=== PATIENT | female | born 1955 | race Caucasian/White ===

== ENCOUNTER 2017-02-14 19:03 | Emergency (ER) | payer OTHER ==
[2017-02-14 20:04] VITALS: BP 155/65
--- NOTE | 2017-02-14 20:07 | UC ---
Complaint Female HPI - HPI Summary HPI Summary: Pt c/o of sudden onset of stabbing pain in her "urethra". Pt was at PCP today and had [id number] physical denies and adverse findings at todays exam. Is concerned that she has a UTI - History Of Current Complaint Chief Complaint: UCGU Stated Complaint: URINARY Time Seen by Provider: 02/14/17 20:02 Hx Obtained From: Patient Hx Last Menstrual Period: 2003 ?: No Onset/Duration: Sudden Onset, Lasting Hours Timing: Intermittent, Lasting Seconds Severity Initially: Mild Severity Currently: Mild Character: Sharp Aggravating Factor(s): Urination Associated Signs And Symptoms: Positive: Back Pain - has chronic back pain - Allergies/Home Medications Allergies/Adverse Reactions: Allergies Allergy/AdvReac Type Severity Reaction Status Date / Time Sulfamethoxazole Allergy Rash Verified 02/14/17 19:54 w/Trimethoprim [From Bactrim] Home Medications: Home Medications buPROPion TAB* [Wellbutrin TAB*] 75 mg PO DAILY 02/14/17 [History Confirmed ] PMH/Surg Hx/FS Hx/Imm Hx Previously Healthy: Yes Cardiovascular History Of: Reports: Cardiac Disorders - Paroxysmal afib, on Rhythmol, Hypertension, Atrial Fibrillation Neurological History Of: Denies: Seizures Psychological History Of: Reports: Anxiety, Depression - Surgical History Surgical History: Yes Surgery Procedure, Year, and Place: Total left knee 11/2014. abdominal hernia repair 2005, 2015. BOWEL OBSTRUCTION RESECT 2012. Cataract surgery. DOUBLE HERNIA REPAIR- MAY 2016 - Family History Known Family History: Positive: Hypertension - Social History Alcohol Use: None Substance Use Type: None Smoking Status (MU): Never Smoked Tobacco Have You Smoked in the Last Year: No - Immunization History Most Recent Influenza Vaccination: NO Most Recent Tetanus Shot: 2012 Most Recent Pneumonia Vaccination: NONE Review of Systems Constitutional: Negative Skin: Negative Eyes: Negative ENT: Negative Respiratory: Negative Cardiovascular: Negative Gastrointestinal: Abdominal Pain - suprapubic Genitourinary: Other - stabbing pain in "urethra" Motor: Negative Neurovascular: Negative Musculoskeletal: Negative Neurological: Negative Psychological: Negative All Other Systems Reviewed And Are Negative: Yes Physical Exam Triage Information Reviewed: Yes Appearance: Well-Appearing Vital Signs: Initial Vital Signs Temp 98.2 F 02/14/17 19:57 Pulse 72 02/14/17 19:57 Resp 18 02/14/17 19:57 BP 155/65 02/14/17 19:57 Pulse Ox 96 02/14/17 19:57 Vital Signs Reviewed: No Eye Exam: Normal Neck exam: Normal Respiratory Exam: Normal Cardiovascular Exam: Normal Abdominal Exam: Other Abdomen Description: Positive: CVA Tenderness (R) - chronic, CVA Tenderness (L) - chronic Musculoskeletal Exam: Other Musculoskeletal: Positive: ROM Limited @ - low back pain , chronic Neurological Exam: Normal Psychological Exam: Normal Skin Exam: Normal Complaint Female Dx - Course Course Of Treatment: I discussed with the pt the results of the UA and concern for possible kidney stone. Pt verbalized understanding and agreed toplan of care. - Differential Dx/Diagnosis Differential Diagnosis/HQI/PQRI: Ureteral Stone, Urinary Tract Infection Provider Diagnoses: hematuria. kidney stone? Discharge - Discharge Plan Condition: Stable Disposition: HOME Patient Education Materials: Hematuria (ED) Referrals: KERVIN Jiménez [Primary Care Provider] - 1 Day Additional Instructions: Please follow up with your PCP in 1 day for hematuria and elevated blood pressure revealed at todays visit.
== END 2017-02-14 20:53 | disposition home or self-care (01) ==
LOC: UCCORT 19:03
DX: R31.9 Hematuria, unspecified (principal); N36.8 Other specified disorders of urethra; Z88.2 Allergy status to sulfonamides
CPT/HCPCS: 81003; 99211; G0463

== ENCOUNTER 2017-06-22 12:19 | Emergency (ER) | payer SELFPAY ==
[2017-06-22 12:25] VITALS: BP 146/83
--- NOTE | 2017-06-22 12:56 | UC ---
Lower Extremity/Ankle HPI - HPI Summary HPI Summary: Increasing, slowly worsening R ankle pain for 5-6 weeks. Also having joint pains in other parts of her body that don't feel like her normal OA. Today went to work and ankle was very painful. Once she sat for a few minutes was unable to stand on it again due to pain. Sx worse with any movement or wiggling toes. Pain is mostly lateral, below malleolus. Had fx in R ankle years ago, no sx. - History of Current Complaint Chief Complaint: UCLowerExtremity Stated Complaint: ACHY JOINTS/RIGHT ANKLE PAIN Time Seen by Provider: 06/22/17 12:39 Hx Obtained From: Patient Hx Last Menstrual Period: 2003 Onset/Duration: Gradual Onset, Lasting Weeks Severity Initially: Mild Severity Currently: Moderate Aggravating Factor(s): Standing, Ambulation Alleviating Factor(s): Rest Able to Bear Weight: Yes - Allergies/Home Medications Allergies/Adverse Reactions: Allergies Allergy/AdvReac Type Severity Reaction Status Date / Time Sulfamethoxazole Allergy Rash Verified 06/22/17 12:26 w/Trimethoprim [From Bactrim] Home Medications: Home Medications hydrOXYzine HCL TAB* [Atarax 10 MG TAB*] 10 mg PO BEDTIME PRN 06/22/17 [History Confirmed 06/22/17] proPAFENone TAB* [Rythmol*] 150 mg PO BID 06/22/17 [History Confirmed 06/22/17] PMH/Surg Hx/FS Hx/Imm Hx Cardiovascular History: Hypertension, Atrial Fibrillation - Surgical History Surgical History: Yes Surgery Procedure, Year, and Place: Total left knee 11/2014. abdominal hernia repair 2005, 2015. BOWEL OBSTRUCTION RESECT 2012. Cataract surgery. DOUBLE HERNIA REPAIR- MAY 2016 - Family History Known Family History: Positive: Hypertension - Social History Occupation: Employed Full-time Alcohol Use: None Substance Use Type: None Smoking Status (MU): Never Smoked Tobacco Have You Smoked in the Last Year: No - Immunization History Most Recent Influenza Vaccination: NO Most Recent Tetanus Shot: 2012 Most Recent Pneumonia Vaccination: NONE Review of Systems Constitutional: Negative Skin: Negative Eyes: Negative ENT: Negative Respiratory: Negative Cardiovascular: Negative Gastrointestinal: Negative Genitourinary: Negative Motor: Decreased ROM Neurovascular: Negative Musculoskeletal: Arthralgia Neurological: Negative Psychological: Negative All Other Systems Reviewed And Are Negative: Yes Physical Exam Triage Information Reviewed: Yes Appearance: Well-Appearing, Obese Vital Signs: Initial Vital Signs Temp 98.1 F 06/22/17 12:22 Pulse 75 06/22/17 12:22 Resp 18 06/22/17 12:22 BP 146/83 06/22/17 12:22 Pulse Ox 100 06/22/17 12:22 Vital Signs Reviewed: Yes Eye Exam: Normal, Other - PERRL Eyes: Positive: Conjunctiva Clear ENT Exam: Normal ENT: Positive: Normal ENT inspection, Hearing grossly normal, Pharynx normal, TMs normal Dental Exam: Normal Neck exam: Normal Neck: Positive: Supple, Nontender, No Lymphadenopathy Respiratory Exam: Normal Respiratory: Positive: Chest non-tender, Lungs clear, Normal breath sounds, No respiratory distress, No accessory muscle use Cardiovascular Exam: Normal Cardiovascular: Positive: RRR, No Murmur Musculoskeletal Exam: Other - tender R lateral ankle inferior to malleolus Musculoskeletal: Positive: No Edema, ROM Limited @ - R ankle, ltd by pain Neurological Exam: Normal Psychological Exam: Normal Skin Exam: Normal Lower Extremity Course/Dx - Differential Dx/Diagnosis Provider Diagnoses: R ankle arthritis Discharge - Discharge Plan Condition: Stable Disposition: HOME Patient Education Materials: Arthritis (ED) Referrals: Paradise Spangler PA [Primary Care Provider] - 1 Week Yasir Barksdale MD [Medical Doctor] - 1 Week Additional Instructions: Bloodwork pending. Please follow up with the orthopedist and your primary care provider for further investigation.
--- NOTE | 2017-06-22 13:17 | RAD ---
INDICATION: Increasing right ankle pain. TECHNIQUE: 3 views of the right ankle were obtained. FINDINGS: There is diffuse soft tissue swelling present. The bones are in normal alignment. No fracture is seen. There is mild to moderate osteoarthritic change in the tibiotalar joint. Note is made of moderate to large calcaneal spurs. IMPRESSION: 1. DIFFUSE SOFT TISSUE SWELLING. 2. MILD TO MODERATE OSTEOARTHRITIC CHANGE.
[2017-06-23 14:25] LABS: BUN/Creatinine Ratio 25.3 (8-20); Calcium 9.8 mg/dL (8.6-10.3); EGFR African American 85.7 (>60); EGFR Non-African American 66.6 (>60); Globulin 2.9 g/dL (2-4); Potassium 4.2 mmol/L (3.5-5.0); Total Bilirubin 0.4 mg/dL (0.2-1.0); Total Protein 6.9 g/dL (6.4-8.9); Uric Acid 6.2 mg/dL (2.3-6.6)
--- NOTE | 2017-06-24 07:04 | ED ---
Progress - Progress Note Progress Note: CMP (-), uric acid pending, follow up with PCP/ER if worse. Course/Dx - Diagnoses Provider Diagnoses: Ankle swelling
--- NOTE | 2017-06-24 10:38 | ED ---
Progress - Progress Note Progress Note: CMP (-), uric acid pending, follow up with PCP/ER if worse. CMP/URIC ACID (-), follow up with PCP/ER if worse. Course/Dx - Diagnoses Provider Diagnoses: Ankle swelling
== END 2017-06-22 13:54 | disposition home or self-care (01) ==
LOC: UCCORT 12:19
DX: M19.071 Primary osteoarthritis, right ankle and foot (principal); I10 Essential (primary) hypertension; I48.91 Unspecified atrial fibrillation; E66.9 Obesity, unspecified; Z96.652 Presence of left artificial knee joint; Z98.49 Cataract extraction status, unspecified eye; Z88.2 Allergy status to sulfonamides
CPT/HCPCS: 36415; 80053; 84550; 86618; 99213; G0463

== ENCOUNTER 2018-02-06 07:10 | Emergency (ER) | payer OTHER ==
[2018-02-06 07:37] VITALS: BP 141/54
--- NOTE | 2018-02-06 07:41 | ED ---
Throat Pain/Nasal Congestion - HPI Summary HPI Summary: 62 yr old female with the complaint of runny nose, post nasal drip and persistent sinus pressure and coughing. She has been ill for about three weeks. She was put on a z pack and also on steroids by pmd, and got a little better, but has persistent sinus pressure and coughing. - History of Current Complaint Chief Complaint: UCGeneralIllness Time Seen by Provider: 02/06/18 07:25 - Allergies/Home Medications Allergies/Adverse Reactions: Allergies Allergy/AdvReac Type Severity Reaction Status Date / Time MS Sulfamethoxazole Allergy Rash Verified 02/06/18 07:37 w/Trimethoprim [From Bactrim] sulfamethoxazole Allergy Rash Verified 02/06/18 07:37 [From Bactrim] trimethoprim [From Bactrim] Allergy Rash Verified 02/06/18 07:37 PMH/Surg Hx/FS Hx/Imm Hx Cardiovascular History: Reports: Hx Hypertension GI History: Reports: Hx Gastroesophageal Reflux Disease - ON MEDS, Hx Obstructive Bowel Musculoskeletal History: Reports: Hx Arthritis - BILATERAL KNEES, HANDS, WRIST, Sensory History: Reports: Hx Cataracts - RIGHT, Hx Contacts or Glasses Denies: Hx Hearing Aid Opthamlomology History: Reports: Hx Cataracts - RIGHT, Hx Contacts or Glasses Neurological History: Denies: Hx Headaches, Hx Seizures Psychiatric History: Reports: Hx Anxiety, Hx Depression - Surgical History Surgery Procedure, Year, and Place: Total left knee 11/2014. abdominal hernia repair 2005, 2015. BOWEL OBSTRUCTION RESECT 2012. Cataract surgery. DOUBLE HERNIA REPAIR- MAY 2016 Hx Anesthesia Reactions: No Infectious Disease History: No Infectious Disease History: Reports: Hx Shingles Denies: Hx Clostridium Difficile, Hx Hepatitis, Hx Human Immunodeficiency Virus (HIV), Hx of Known/Suspected MRSA, Hx Tuberculosis, Hx Known/Suspected VRE , Hx Known/Suspected VRSA, History Other Infectious Disease, Traveled Outside the [place] in Last 30 Days - Family History Known Family History: Positive: Hypertension - Social History Alcohol Use: None Substance Use Type: Reports: None Smoking Status (MU): Never Smoked Tobacco Have You Smoked in the Last Year: No Review of Systems Constitutional: Negative Positive: Other - sinus pressure, post nasal drip Positive: Cough All Other Systems Reviewed And Are Negative: Yes Physical Exam Triage Information Reviewed: Yes Vital Signs On Initial Exam: Initial Vitals Temp Pulse Resp BP Pulse Ox 98.1 F 80 20 141/54 100 02/06/18 07:33 02/06/18 07:33 02/06/18 07:33 02/06/18 07:33 02/06/18 07:33 Vital Signs Reviewed: Yes Appearance: Positive: Well-Appearing, No Pain Distress Skin: Positive: Warm, Skin Color Reflects Adequate Perfusion Eyes: Positive: EOMI ENT: Positive: Pharynx normal, Nasal congestion, Sinus tenderness - bilateral Neck: Positive: Nontender Respiratory/Lung Sounds: Positive: Clear to Auscultation, Breath Sounds Present Cardiovascular: Positive: RRR Abdomen Description: Positive: Nontender Musculoskeletal: Positive: Strength/ROM Intact Neurological: Positive: Sensory/Motor Intact, Alert, Oriented to Person Place, Time, CN Intact II-III Psychiatric: Positive: Normal - Keller Coma Scale Best Eye Response: 4 - Spontaneous Best Motor Response: 6 - Obeys Commands Best Verbal Response: 5 - Oriented Coma Scale Total: 15 Diagnostics - Vital Signs Vital Signs Temp Pulse Resp BP Pulse Ox 02/06/18 07:33 98.1 F 80 20 141/54 100 - Laboratory Lab Statement: Any lab studies that have been ordered have been reviewed, and results considered in the medical decision making process. EENT Course/Dx - Course Course Of Treatment: 62 yr old with sinusitis. Rx augmentin. - Diagnoses Provider Diagnoses: Sinusitis, Hypertension Discharge - Discharge Plan Condition: Good Disposition: HOME Prescriptions: Amoxicillin/Clavulanate TAB* [Augmentin TAB 875*] 875 mg PO BID #20 tab Patient Education Materials: Sinusitis (ED), Hypertension (ED) Referrals: Paradise Pearson MD [Primary Care Provider] - 2 Days
== END 2018-02-06 07:51 | disposition home or self-care (01) ==
LOC: UCCORT 07:10
DX: J32.9 Chronic sinusitis, unspecified (principal); I10 Essential (primary) hypertension; Z88.1 Allergy status to other antibiotic agents
CPT/HCPCS: 99212; G0463

== ENCOUNTER 2018-07-14 15:22 | Emergency (ER) | payer OTHER ==
--- OUTSIDE RECORDS SUMMARY | 2018-07-14 16:03 | XMS REPORT ---
:1955 External Reference #:[id number] Author Organization [employer] Address [address] [place] [address] [place] [address] Phone [phone] Care Team Providers Name Role Phone Domingo Romero, ALVARO Primary Care Physician Unavailable Payers Type Date Identification Numbers Payment Provider Subscriber Commercial Policy Number: [id number] [place] Merle Maldonado PayID: [id number] [address] [place] [address] Medigap Part B Expires: 2014 Policy Number: [id number] Medicaid Merle Maldonado Group Name: 1 1 [address] PayID: [id number] [place] [address] Problems Description No Information Family History Date Family Member(s) Problem(s) Comments General Diabetes General Lung Cancer General Rectal Cancer Father Stomach Cancer Mother Lung Cancer Social History Type Date Description Comments Marital Status Lives With Alone 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 Smokeless Tobacco Never Used Smokeless Tobacco ETOH Use Denies alcohol use Smoking Patient has never smoked Recreational Drug Use Denies Drug Use Daily Caffeine Consumes on average 12oz of soda per day Exercise Type/Frequency Does not exercise Allergies, Adverse Reactions, Alerts Date Description Reaction Status Severity Comments 07/04/2018 Bactrim active 06/21/2014 NKDA inactive Medications Medication Date Status Form Strength Qnty SIG Indications Ordering Provider Cymbalta / Active Caps DR 30cap 1 by mouth Unknown 0000 Part s every day Rythmol SR / Active Caps ER 325mg 180ca 1 cap by Unknown 0000 12HR ps mouth twice a day Ondansetron HCL / Active Tablets 4mg one by mouth Unknown 0000 every 8 hours as needed for nausea Xarelto / Active Tablets 20mg 1 by mouth Unknown 0000 every day Omeprazole / Active Capsules 20mg 1 by mouth Unknown 0000 DR every day Klor-Con M20 / Active Tablets 20Meq Villapian 0000 ER Paradise beasley M.D. Furosemide / Active Tablets 40mg Unknown 0000 Hydroxyzine HCL / Active Tablets 10mg Unknown 0000 Percocet 01/24/ Hx Tablets 5-325mg 40tab 1-2 tabs by Carolyn 2014 mouth q 8 Yasir, hours as M.D. needed for pain Coumadin 11/08/ Hx Tablets 2.5mg 60tab take as Carolyn 2013 directed at [facility], 12/23/ 5pm daily M.DRose 2014 Colace 11/08/ Hx Capsules 100mg 60cap one capsule Rafael 2013 s two times a Kanika, day as needed M.D. constipation Bactrim DS 11/08/ Hx Tablets 800-160mg 14tab 1 by mouth Carolyn 2013 twice a day Yasir, 12/23/ for 7 days M.D. 2014 Percocet 09/01/ Hx Tablets 5-325mg 80tab 1-2 tabs by Carolyn 2013 mouth q 6 Yasir, 12/23/ hours as M.DRose 2014 needed for pain Wellbutrin SR / Hx Tablets 60mg 60tab 1 by mouth Unknown 0000 ER 12HR s twice a day Ciprofloxacin / Hx Tablets 500mg 1 tab by Unknown HCL 0000 mouth twice a day Metronidazole / Hx Tablets 500mg one tablet by Unknown 0000 mouth 3 times daily Sucralfate / Hx Tablets 1gm 1 by mouth Unknown 0000 four times a day Potassium / Hx Tablets 20Meq 1 by mouth Unknown Chloride Sunshine 0000 ER every day x ER 14 days Lisinopril / Hx Tablets 20mg 1 by mouth Unknown 0000 every day Medications Administered in Office Medication Date Status Form Strength Qnty SIG Indications Ordering Provider Depomedrol Administered Injection Carolyn 80MG 015 Clem Cooley Depomedrol Administered Injection Carolyn 80MG 014 Clem Cooley Depomedrol Administered Injection Vilma 80MG 014 Clem Reynolds Depomedrol Administered Injection Vilma 80MG 014 Clem Reynolds Vital Signs Date Vital Result Comment 07/04/2018 Height 64 inches 5'4" Weight 284.00 lb Heart Rate 76 /min BP Systolic 122 mmHg BP Diastolic 84 mmHg Respiratory Rate 18 /min Body Temperature 98.4 F BMI (Body Mass Index) 48.7 kg/m2 03/02/2015 Height 64 inches 5'4" Weight 283.00 lb Pain Level 2 BMI (Body Mass Index) 48.6 kg/m2 01/19/2015 Height 64 inches 5'4" Weight 283.00 lb Pain Level 8 BMI (Body Mass Index) 48.6 kg/m2 12/24/2014 Height 64 inches 5'4" Heart Rate 87 /min BP Systolic 140 mmHg BP Diastolic 80 mmHg 12/03/2014 Height 64 inches 5'4" Weight 283.00 lb Heart Rate 87 /min BP Systolic Sitting 138 mmHg BP Diastolic Sitting 70 mmHg Body Temperature 98.5 F BMI (Body Mass Index) 48.6 kg/m2 11/08/2014 Height 64 inches 5'4" Weight 300.00 lb Heart Rate 73 /min BP Systolic 156 mmHg BP Diastolic 79 mmHg BMI (Body Mass Index) 51.5 kg/m2 09/01/2014 Height 64 inches 5'4" Weight 295.00 lb Heart Rate 88 /min BMI (Body Mass Index) 50.6 kg/m2 08/11/2014 Heart Rate 88 /min BP Systolic Sitting 140 mmHg BP Diastolic Sitting 90 mmHg 06/21/2014 Height 64 inches 5'4" Weight 295.00 lb Heart Rate 80 /min BP Systolic Sitting 140 mmHg BP Diastolic Sitting 82 mmHg BMI (Body Mass Index) 50.6 kg/m2 Results Test Date Test Result H/L Range Note CBC Auto Diff 11/11/2014 White Blood Count 8.5 10^3/uL 4.8-10.8 Red Blood Count 5.28 10^6/uL 4.0-5.4 Hemoglobin 12.7 g/dL 12.0-16.0 Hematocrit 39 % 35-47 Mean Corpuscular Volume 74 fL Low 80-97 Mean Corpuscular Hemoglobin 24 pg Low 27-31 Mean Corpuscular HGB Conc 33 g/dL 31-36 Red Cell Distribution Width 16 % High 10.5-15 Platelet Count 332 10^3/uL 150-450 Mean Platelet Volume 8 um3 7.4-10.4 Abs Neutrophils 5.3 10^3/uL 1.5-7.7 Abs Lymphocytes 2.4 10^3/uL 1.0-4.8 Abs Monocytes 0.6 10^3/uL 0-0.8 Abs Eosinophils 0.1 10^3/uL 0-0.6 Abs Basophils 0.1 10^3/uL 0-0.2 Abs Nucleated RBC 0.01 10^3/uL Granulocyte % 62.2 % 38-83 Lymphocyte % 28.3 % 25-47 Monocyte % 7.5 % 1-9 Eosinophil % 1.4 % 0-6 Basophil % 0.6 % 0-2 Nucleated Red Blood Cells % 0.2 Comp Metabolic Panel 11/11/2014 Sodium 139 mmol/L 133-145 Potassium 4.2 mmol/L 3.5-5.0 Chloride 103 mmol/L 101-111 Co2 Carbon Dioxide 29 mmol/L 22-32 Anion Gap 7 mmol/L 2-11 Glucose 90 mg/dL 70-100 Blood Urea Nitrogen 12 mg/dL 6-24 Creatinine 0.74 mg/dL 0.51-0.95 BUN/Creatinine Ratio 16.2 8-20 Calcium 9.6 mg/dL 8.6-10.3 Total Protein 7.2 g/dL 6.4-8.9 Albumin 4.0 g/dL 3.2-5.2 Globulin 3.2 g/dL 2-4 Albumin/Globulin Ratio 1.3 1-3 Total Bilirubin 0.30 mg/dL 0.2-1.0 Alkaline Phosphatase 100 U/L 34-104 Alt 14 U/L 7-52 Ast 13 U/L 13-39 Egfr Non- 80.9 >60 Egfr 104.0 >60 1 Laboratory test finding 11/11/2014 Pathologist Review (SEE NOTE) 2 Type & Screen 11/08/2014 Patient Blood Type A Positive 3 Antibody Screen NEGATIVE 3 Laboratory test finding 11/08/2014 Inr 0.91 0.85-1.06 Urinalysis Profile 11/08/2014 Urine Color Yellow Urine Appearance Cloudy Urine Specific [place] 1.024 1.010-1.030 Urine pH 6.0 5-9 Urine Urobilinogen Positive Negative Urine Ketones Negative Negative Urine Protein Negative Negative Urine Leukocytes 3+ Negative Urine Blood Negative Negative Urine Nitrite Negative Negative Urine Bilirubin Negative Negative Urine Glucose Negative Negative Urine White Blood Cell 2+(11-20/hpf) Absent Urine Red Blood Cell 1+(3-5/hpf) Absent Urine Bacteria Absent Absent Urine Squamous Epithelial Cell Present Absent Urine Culture And Sensitivities 11/08/2014 Urine Culture (SEE NOTE) 4 1 Because ethnic data is not always readily available, this report includes an eGFR for both -Americans and non- Americans. The National Kidney Disease Education Program (NKDEP) does not endorse the use of the MDRD equation for patients that are not between the ages of 18 and 70, are , have extremes of body size, muscle mass, or nutritional status, or are non- or non-. According to the National Kidney Foundation, irrespective of diagnosis, the stage of the disease is based on the level of kidney function: Stage Description GFR(mL/min/1.73 m(2)) 1 Kidney damage with normal or decreased GFR 90 2 Kidney damage with mild decrease in GFR 60-89 3 Moderate decrease in GFR 30-59 4 Severe decrease in GFR 15-29 5 Kidney failure <15 (or dialysis) 2 Reviewed by Brittani Browne MD CBC and smear reviewed. Microcytic, hypochromic anemia present. Findings consistent with iron deficiency. 3 OSTEOARTHRITIS LEFT KNEE 4 RUN DATE: 11/10/14 [facility] LIVE PAGE 1 RUN TIME: [id number] [place], [place] [address] Specimen Inquiry Name: MERLE MALDONADO Domingo : [address]: Carolyn Cooley MD Acct: [id number] Unit: [id number] AGE: 59 Location: [facility] Re11/08/14 SEX: F Status: REG REF SPEC: [id number] ASHWINI: 11/08/14-1124 [facility] DR: Carolyn Cooley MD REQ: [id number] RECD: 11/08/14 STATUS: COMP _ SOURCE: URINE SPDESC: ORDERED: Urine Culture Procedure Result Verified Site Urine Culture Final 11/10/14- 1106 ML Organism 1 NORMAL DANE Lyons Count 25-50,000 (Moderate) CFU/ML END OF REPORT * ML=Testing performed at Main Lab DEPARTMENT OF PATHOLOGY, [address] [place] [address] Toni Lazaro M.D. Director [facility] # [id number] Procedures Date CPT Code Description Status 03/02/201558397 Inject/Drain Joint/Bursa Major W/O US Completed 12/24/2014 21098 Xray Knee 3 Views Completed 12/24/2014 63711 Rad Exam; Knee, Ap&L Completed 12/03/2014 23229 Xray Knee 3 Views Completed 11/16/2014 88907 EKG, Interpretation Only Completed 11/16/2014 09082 TKR Total Knee Replacement Completed 11/16/2014 61466 TKR Total Knee Replacement Completed 09/01/2014 00203 Xray Knee 3 Views Completed 09/01/2014 98880 Xray Knee 3 Views Completed 09/01/201462648 Inject/Drain Joint/Bursa Major W/O US Completed 06/21/201499310 Inject/Drain Joint/Bursa Major W/O US Completed 06/21/201481722 Inject/Drain Joint/Bursa Major W/O US Completed Encounters Type Date Location Provider CPT E/M Dx Office Visit 03/02/2015 [facility] M.D. 16134 715.16 1:30p C.MJuan Office Visit 01/24/2015 [facility] M.D. 07106 719.46 9:30a C.MJuan E885.9 Office Visit 11/17/2014 12:55p [facility], Jayant Castillo, 87351 401.9 Hospitalists Clem 278.00 V43.65 Office Visit 11/16/2014 12:55p [facility], [place] [address] 401.9 Hospitalists 278.00 V43.65 Office Visit 09/01/2014 2:00p [facility] Cooley M.D. 34915 715.16 Of C.MRoseARose Office Visit 08/11/2014 10:15a [facility] Vilma Reynolds 46218 715.16 Of Supervisor Of Instruction CLAUDIA Eugene Clem Office Visit 06/21/2014 9:30a [facility] Vilma Reynolds 76001 715.16 Of [facility] No Information Available
--- OUTSIDE RECORDS SUMMARY | 2018-07-14 16:03 | XMS REPORT ---
:1955 External Reference #:[id number] Author Organization [facility] Address [address], [address] [place] [address] Phone [phone] Care Team Providers Name Role Phone Domingo Romero, ELECTRICAL TRYOUT PERSON Care Team Information Paper Feeder Unavailable Paradise Pearson MD Primary Care Physician Unavailable Payers Type Date Identification Numbers Payment Provider Subscriber Commercial Policy Number: [id number] [employer] Merle Maldonado PayID: [id number] [address] [place] [address] Problems Date Description Provider Status Onset: 04/16/2013 Morbid obesity Daly Robbins M.D. Onset: 04/16/2013 Constipation Daly Robbins M.D. Onset: 04/16/2013 Incisional hernia Daly Robbins M.D. Onset: 07/01/2018 Dizziness and giddiness Yusuf Monae M.D., Active FACC Onset: 07/01/2018 Malaise and fatigue Yusuf Monae M.D., Active FACC Onset: 05/16/2018 Electrocardiogram abnormal Yusuf Monae M.D., Active FACC Onset: 05/16/2018 Aortic valve disorder Yusuf Monae M.D., Active FACC Onset: 05/16/2018 Essential hypertension Yusuf Monae M.D., Active FACC Onset: 05/16/2018 Paroxysmal atrial fibrillation Yusuf Monae M.D., Active FACC Onset: 05/16/2018 Preoperative cardiovascular Yusuf Monae M.D., Active examination FACC Family History Date Family Member(s) Problem(s) Comments General No known family history of CAD. : (age 45 Years) Father due to Liver Cancer Father Stomach Cancer : (age 70 Years) Mother due to Lung Cancer Mother Lung Cancer First Son 28 First Daughter 21 First Brother heart valve replacement Second Brother Diabetes Grandfather Heart Disease Grandfather Stroke Social History Type Date Description Comments Marital Status Single Lives With Carline Lives With Daughter Lives With Son Diet Patient follows no dietary restrictions Occupation Unemployed ADL's/IADL's Independent with all ADL's ETOH Use Denies alcohol use Smoking Patient does not smoke Recreational Drug Use Denies Drug Use Daily Caffeine Patient consumes minimal amounts of caffeine Daily Caffeine Consumes on average 16oz of soda per day Allergies, Adverse Reactions, Alerts Date Description Reaction Status Severity Comments 02/01/2016 Bactrim active 04/18/2016 Sulfamethoxazole active 04/18/2016 Trimethoprim active Medications Medication Date Status Form Strength Qnty SIG Indications Ordering Provider Lisinopril-Hyd Active Tablets 20-12.5mg 1 by mouth Unknown rochlorothiazi / every day de Duloxetine HCL Active Caps DR 60mg once daily [place], / Part Paradise Dotson MD Propafenone Active Caps ER 325mg 1 po daily [place], HCL ER /0000 12HR Paradise Dotson MD Xarelto Active Tablets 20mg once daily [place], /0000 Paradise Dotson MD Klor-Con M20 Active Tablets 20Meq 1 po q other [place], /0000 ER day Paradise Dotson MD Hydroxyzine Active Tablets 50mg 1 po in [place], HCL /0000 evening as Paradise Dotson needed Fluconazole 07/19 Hx Tablets 100mg 30tab 1 po q day T81.4xxD s HRose - Emmy, 05/06 MAnushka /2017 Zofran Odt 06/07 Hx Tablets 4mg 7tabs 1 tab by Dispers mouth every H. 6 hours as Emmy, needed; call M.D. or return to hospital if needs more than 2 doses in a row Ciprofloxacin 06/05 Hx Tablets 500mg 30tab 1 tab by Virgilio s mouth 2x/day H. - Duanemani, 05/06 M.D. Tylenol With 05/03 Hx Tablets 300-30mg 20tab 1 by mouth Virgilio Codeine #3 s q6hr as H. - needed Emmy, 07/26 severe pain, M.D. /2015 us if ibuprofen not effective Augmentin 06/30 Hx Tablets 875-125mg 30tab 1 po bid s H. - Emmy, 01/31.D. Metronidazole 06/30 Hx Tablets 500mg 45tab 1 by mouth s three times H. - a day Emmy, 05/06.D. Miralax 04/16 Hx Powder 3350NF 510gm one cap or 564.00 one heaping H. - teaspoonful Emmy, 01/31 daily .D. intiially; may increase to one twice a day as needed in a few days prn no bm Rythmol SR 09/05 Hx CP12 325mg 60uni 1bid - Take ts One Capsule Letha, - By Mouth M.D., [facility] 05/06 Twice Daily Rythmol SR 07/01 Hx CP12 325mg 60uni 1bid - Take ts One By Mouth Letha, - Twice Daily M.D., [facility] 09/05 Effexor XR Hx Caps ER 150mg po qd 24HR Clem Monae, [facility] Aspirin Ec Hx Tablets 81mg [address] Letha M.D., [facility] Advil Hx Capsules 200mg 4 po prn bid Unknown / - 01/31 Citalopram Hx Tablets 40mg 1 po qd Unknown Hydrobromide /0000 - 01/[address] 60mg 30cap 1 po qd Unknown /0000 Part s - 05/06 Wellbutrin Hx Tablets 100mg 1 po qd Unknown / - 01/31 Ibuprofen Hx Tablets 800mg 1 tablet by Unknown /0000 mouth three times a day with meals. Vitamin D3 Hx Capsules 5000Unit 1 a day Unknown Maximum /0000 Strength - 05/06 Multi Adult Hx Chewtabs 1 by mouth Unknown Gummies /0000 every day Vital Signs Date Vital Result Comment 07/01/2018 BP Systolic Sitting Left Arm 100 mmHg BP Diastolic Sitting Left Arm 60 mmHg Heart Rate 99 /min Respiratory Rate 14 /min Height 64 inches 5'4" Weight 284.00 lb BMI (Body Mass Index) 48.7 kg/m2 BSA (Body Surface Area) 2.27 m2 [place] body weight in kilograms 54 O2 % BldC Oximetry 97 % 05/21/2018 BP Systolic Sitting Right Arm 162 mmHg BP Diastolic Sitting Right Arm 74 mmHg Heart Rate 90 /min Respiratory Rate 16 /min Height 64 inches 5'4" Weight 288.00 lb BMI (Body Mass Index) 49.4 kg/m2 BSA (Body Surface Area) 2.28 m2 [place] body weight in kilograms 54 O2 % BldC Oximetry 96 % 05/16/2018 BP Systolic Sitting Left Arm 122 mmHg BP Diastolic Sitting Left Arm 78 mmHg Heart Rate 86 /min Respiratory Rate 18 /min Height 64 inches 5'4" Weight 290.00 lb BMI (Body Mass Index) 49.8 kg/m2 BSA (Body Surface Area) 2.29 m2 [place] body weight in kilograms 54 O2 % BldC Oximetry 95 % Ora 05/06/2018 BP Systolic 146 mmHg BP Diastolic 96 mmHg Heart Rate 84 /min Respiratory Rate 19 /min Height 64 inches 5'4" Weight 284.00 lb BMI (Body Mass Index) 48.7 kg/m2 BSA (Body Surface Area) 2.27 m2 [place] body weight in kilograms 54 O2 % BldC Oximetry 96 % 07/26/2016 BP Systolic 121 mmHg BP Diastolic 71 mmHg Heart Rate 78 /min Height 64 inches 5'4" Weight 287.00 lb BMI (Body Mass Index) 49.3 kg/m2 BSA (Body Surface Area) 2.28 m2 [place] body weight in kilograms 54 07/19/2016 Body Temperature 99.2 F 06/06/2016 Body Temperature 97.5 F 02/01/2016 BP Systolic Sitting Left Arm 167 mmHg BP Diastolic Sitting Left Arm 80 mmHg Heart Rate 80 /min Height 64 inches 5'4" Weight 285.00 lb BMI (Body Mass Index) 48.9 kg/m2 BSA (Body Surface Area) 2.27 m2 O2 % BldC Oximetry 97 % 04/16/2013 BP Systolic Sitting Right Arm 132 mmHg BP Diastolic Sitting Right Arm 78 mmHg Heart Rate 71 /min Respiratory Rate 20 /min Height 64 inches 5'4" Weight 271.00 lb BMI (Body Mass Index) 46.5 kg/m2 BSA (Body Surface Area) 2.23 m2 03/05/2011 BP Systolic Sitting Left Arm 146 mmHg BP Diastolic Sitting Left Arm 77 mmHg Body Temperature 98.4 F Heart Rate 76 /min Respiratory Rate 18 /min Height 64 inches 5'4" Weight 310.00 lb BMI (Body Mass Index) 53.2 kg/m2 06/20/2010 Heart Rate 84 /min Respiratory Rate 16 /min Weight 300.00 lb Results Test Date Test Result H/L Range Note Nocturnal Oximetry 05/30/2018 Low Oximetry 86 % Low 93-98 1 Fio2 21 21-100 1 Heart Rate 76 BPM 1 Duration Of Study 371 MINUTES 1 Total Time Below 88% 2.7 MINUTES 1 Continuous Oximetry 05/30/2018 Oximetry 95 % 93-98 1 Fio2 21 21-100 1 Heart Rate 105 BPM 1 Patient Status RESTING 1 Xray 07/24/2016 Ultrasound Abdomen, packing not fluuid Limited Fluid Culture W/ Gram 06/07/2016 Fluid Culture W/ Gram See Note 2 Stain Stain Gram Stain See Note 3 Fluid Culture See Note 4 CBC W/Automated Diff 06/06/2016 White Blood Count 8.3 K/uL 3.1-10.7 Red Blood Count 4.70 M/uL 3.90-5.40 Hemoglobin 10.6 gm/dL Low 11.6-15.8 Hematocrit 34.0 % Low 36.0-46.1 Mean Cell Volume 72.3 fl Low 80.9-99.0 Mean Corpuscular HGB 22.6 pg Low 25.9-32.7 Mean Corpuscular HGB Conc 31.2 g/dL 30.8-34.3 Platelet Count 398 K/uL High 155-360 Red Cell Distri Width SD 41.7 fl 3-47 Red Cell Distri Width %CV 16.3 % High 11.7-14.4 Mean Platelet Volume 9.7 fL 8.9-12.4 Neut% 60.3 % 40.4-72.8 Lymph % 28.3 % 17.0-46.1 [place] % 8.2 % 4.3-13.2 Eo% 2.7 % 0.0-6.6 Bas% 0.5 % 0.0-1.1 Neut# 5.01 K/uL 1.8-7.0 Lymph # 2.35 K/uL 1.8-7.0 [place] # 0.68 K/uL 0.3-0.9 Eos # 0.22 K/uL 0.0-0.5 Baso # 0.04 K/uL 0.0-0.1 CBC 05/20/2016 White Blood Count 6.7 K/uL 3.1-10.7 Red Blood Count 4.55 M/uL 3.90-5.40 Hemoglobin 10.2 gm/dL Low 11.6-15.8 Hematocrit 33.4 % Low 36.0-46.1 Mean Cell Volume 73.4 fl Low 80.9-99.0 Mean Corpuscular HGB 22.4 pg Low 25.9-32.7 Mean Corpuscular HGB Conc 30.5 g/dL Low 30.8-34.3 Platelet Count 314 K/uL 155-360 Red Cell Distri Width %CV 15.8 % High 11.7-14.4 Mean Platelet Volume 9.6 fL 8.9-12.4 Laboratory test finding 05/09/2016 Alanine Aminotransferase (Alt/SGPT) 22 12-78 Albumin 3.0 Low 3.4-5.0 Albumin/Globulin Ratio 0.7 Alkaline Phosphatase 127 High 45-117 Anion Gap 7 Low 8-16 Aspartate Amino Transf (Ast/Sgot) 12 Low 15-37 BUN/Creatinine Ratio 18.8 Basophils # (Auto) 0.06 0.0-0.1 Basophils (%) (Auto) 0.6 0.0-1.1 Blood Urea Nitrogen 17 7-18 Calcium Level 8.8 8.5-10.1 Carbon Dioxide Level 29 21-32 Chloride Level 104 98-107 Creatinine 0.9 0.6-1.3 Eosinophils # (Auto) 0.38 0.0-0.5 Eosinophils (%) (Auto) 4.1 0.0-6.6 Globulin 4.4 High 1.9-4.3 Glucose Screen 129 High 74-106 Hematocrit 35.0 Low 36.0-46.1 Hemoglobin 11.2 Low 11.6-15.8 Lymphocytes # (Auto) 3.10 1.8-7.0 Lymphocytes (%) (Auto) 33.4 17.0-46.1 Mean Corpuscular Hemoglobin 22.9 Low 25.9-32.7 Mean Corpuscular Hemoglobin Concent 32.0 30.8-34.3 Mean Corpuscular Volume 71.6 Low 80.9-99.0 Mean Platelet Volume 9.4 8.9-12.4 Monocytes # (Auto) 0.86 0.3-0.9 Monocytes (%) (Auto) 9.3 4.3-13.2 Neutrophils # (Auto) 4.87 1.8-7.0 Neutrophils (%) (Auto) 52.6 40.4-72.8 Platelet Count 366 High 155-360 Potassium Level 3.3 Low 3.5-5.1 RDW Coefficient of Variation 15.9 High 11.7-14.4 Red Blood Count 4.89 3.90-5.40 Red Cell Distribution Width 41.1 3-47 Sodium Level 140 136-145 Total Bilirubin 0.3 0.2-1.0 Total Protein 7.4 6.4-8.2 White Blood Count 9.3 3.1-10.7 Laboratory test finding 05/03/2016 Urine Amorphous Sediment Moderate Negative Urine Bacteria Moderate High None Seen Urine Bilirubin Negative Negative Urine Blood Negative Negative Urine Clarity SL Cloudy Clear Urine Color Yellow Yellow Urine Epithelial Cells Many None Seen Urine Glucose (Ua) Negative Negative Urine Ketones Negative Negative Urine Leukocyte Esterase Trace High Negative Urine Nitrite Negative Negative Urine Protein Negative Negative Urine Specific [place] 1.025 1.010-1.030 Urine Uric Acid Crystals Few None Seen Urine Urobilinogen 2.0 High 0.2-1.0 Urine pH 6.0 Low 6.5-7.5 Urine Culture Organism: Mixed Urethral Annemarie Laboratory test finding 05/03/2016 Alanine Aminotransferase (Alt/SGPT) 26 12-78 Albumin 2.6 Low 3.4-5.0 Albumin/Globulin Ratio 0.7 Alkaline Phosphatase 119 High 45-117 Anion Gap 7 Low 8-16 Aspartate Amino Transf (Ast/Sgot) 17 15-37 BUN/Creatinine Ratio 21.4 Basophils # (Auto) 0.08 0.0-0.1 Basophils (%) (Auto) 0.9 0.0-1.1 Blood Urea Nitrogen 15 7-18 Calcium Level 8.4 Low 8.5-10.1 Carbon Dioxide Level 29 21-32 Chloride Level 105 98-107 Creatinine 0.7 0.6-1.3 Eosinophils # (Auto) 0.46 0.0-0.5 Eosinophils (%) (Auto) 5.4 0.0-6.6 Globulin 4.0 1.9-4.3 Glucose Screen 127 High 74-106 Hematocrit 31.3 Low 36.0-46.1 Hemoglobin 10.1 Low 11.6-15.8 Lipase 134 73-393 Lymphocytes # (Auto) 3.23 1.8-7.0 Lymphocytes (%) (Auto) 37.8 17.0-46.1 Mean Corpuscular Hemoglobin 23.3 Low 25.9-32.7 Mean Corpuscular Hemoglobin Concent 32.3 30.8-34.3 Mean Corpuscular Volume 72.3 Low 80.9-99.0 Mean Platelet Volume 9.8 8.9-12.4 Monocytes # (Auto) 0.85 0.3-0.9 Monocytes (%) (Auto) 9.9 4.3-13.2 Neutrophils # (Auto) 3.93 1.8-7.0 Neutrophils (%) (Auto) 46.0 40.4-72.8 Platelet Count 367 High 155-360 Potassium Level 3.4 Low 3.5-5.1 RDW Coefficient of Variation 16.0 High 11.7-14.4 Red Blood Count 4.33 3.90-5.40 Red Cell Distribution Width 41.3 3-47 Sodium Level 141 136-145 Total Bilirubin 0.3 0.2-1.0 Total Protein 6.6 6.4-8.2 White Blood Count 8.6 3.1-10.7 Laboratory test finding 04/24/2016 Carbon Dioxide Level 28 21-32 Sodium Level 140 136-145 Basic Metabolic Panel 04/24/2016 Glucose 111 mg/dL High 74-106 BUN 15 mg/dL 7-18 Creatinine 0.6 mg/dL 0.6-1.3 Glom Filtration Rate, Estimate >60 mL/min >60 If >60 mL/min >60 5 BUN/Creat 25.0 ratio Sodium 140 mmol/L 136-145 Potassium 3.6 mmol/L 3.5-5.1 Chloride 106 mmol/L 98-107 Carbon Dioxide 28 mmol/L 21-32 Anion Gap 6 mEq/L Low 8-16 Calcium 8.9 mg/dL 8.5-10.1 Laboratory test finding 04/18/2016 Hematocrit 39.8 36.0-46.1 Hemoglobin 12.6 11.6-15.8 Mean Corpuscular Hemoglobin 22.6 Low 25.9-32.7 Mean Corpuscular Hemoglobin Concent 31.7 30.8-34.3 Mean Corpuscular Volume 71.3 Low 80.9-99.0 Mean Platelet Volume 10.1 8.9-12.4 Platelet Count 288 155-360 RDW Coefficient of Variation 16.5 High 11.7-14.4 Red Blood Count 5.58 High 3.90-5.40 White Blood Count 7.1 3.1-10.7 Laboratory test finding 02/06/2016 Estimated Average Glucose (eAG) 148 Hemoglobin A1c 6.8 High 4.2-6.3 Laboratory test finding 01/25/2016 Alanine Aminotransferase (Alt/SGPT) 29 12-78 Albumin 3.3 Low 3.4-5.0 Albumin/Globulin Ratio 0.8 Alkaline Phosphatase 113 45-117 Anion Gap 7 Low 8-16 Aspartate Amino Transf (Ast/Sgot) 14 Low 15-37 BUN/Creatinine Ratio 20.0 Basophils # (Auto) 0.03 0.0-0.1 Basophils (%) (Auto) 0.3 0.0-1.1 Blood Urea Nitrogen 18 7-18 Calcium Level 9.0 8.5-10.1 Carbon Dioxide Level 29 21-32 Chloride Level 104 98-107 Creatinine 0.9 0.6-1.3 Eosinophils # (Auto) 0.16 0.0-0.5 Eosinophils (%) (Auto) 1.6 0.0-6.6 Globulin 4.1 1.9-4.3 Glucose Screen 120 High 74-106 Hematocrit 36.7 36.0-46.1 Hemoglobin 11.7 11.6-15.8 Lipase 133 73-393 Lymphocytes # (Auto) 3.65 1.8-7.0 Lymphocytes (%) (Auto) 36.6 17.0-46.1 Mean Corpuscular Hemoglobin 22.8 Low 25.9-32.7 Mean Corpuscular Hemoglobin Concent 31.9 30.8-34.3 Mean Corpuscular Volume 71.4 Low 80.9-99.0 Mean Platelet Volume 9.9 8.9-12.4 Monocytes # (Auto) 0.81 0.3-0.9 Monocytes (%) (Auto) 8.1 4.3-13.2 Neutrophils # (Auto) 5.31 1.8-7.0 Neutrophils (%) (Auto) 53.4 40.4-72.8 Platelet Count 327 155-360 Potassium Level 3.2 Low 3.5-5.1 RDW Coefficient of Variation 16.2 High 11.7-14.4 Red Blood Count 5.14 3.90-5.40 Red Cell Distribution Width 40.8 3-47 Sodium Level 140 136-145 Total Bilirubin 0.2 0.2-1.0 Total Protein 7.4 6.4-8.2 White Blood Count 10.0 3.1-10.7 Laboratory test finding 01/25/2016 Urine Amorphous Sediment Small Negative Urine Bacteria Few None Seen Urine Bilirubin Small High Negative Urine Blood Negative Negative Urine Calcium Oxalate Crystals Moderate None Seen Urine Clarity SL Cloudy Clear Urine Color Yellow Yellow Urine Epithelial Cells Moderate None Seen Urine Glucose (Ua) Negative Negative Urine HCG, Qualitative Negative Negative Urine Ketones Trace High Negative Urine Leukocyte Esterase Small High Negative Urine Mucus Very Few None Seen Urine Nitrite Negative Negative Urine Protein 30 High Negative Urine Specific [place] 1.025 1.010-1.030 Urine Urobilinogen 1.0 0.2-1.0 Urine pH 6.0 Low 6.5-7.5 Laboratory test finding 07/03/2013 Abscess/Abscess Wall See Note 6 Basic Metabolic Panel 07/02/2013 Glucose 147 mg/dL High 76-115 BUN 14 mg/dL 5-23 Creatinine 0.9 mg/dL 0.5-1.4 Glom Filtration Rate, Estimate >60 mL/min >60 If >60 mL/min >60 7 BUN/Creat 15.5 ratio Sodium 141 mmol/L 136-145 Potassium 3.9 mmol/L 3.5-5.1 Chloride 107 mmol/L 98-107 Carbon Dioxide 24 mEq/L 18-29 Anion Gap 14 mEq/L 8-16 Calcium 9.3 mg/dL 8.5-10.1 CBC 07/02/2013 White Blood Count 5.9 K/uL 3.1-10.7 Red Blood Count 4.85 M/uL 3.90-5.40 Hemoglobin 11.6 gm/dL 11.6-15.8 Hematocrit 36.5 % 36.0-46.1 Mean Cell Volume 75.3 fl Low 80.9-99.0 Mean Corpuscular HGB 23.9 pg Low 25.9-32.7 Mean Corpuscular HGB Conc 31.8 g/dL 30.8-34.3 Platelet Count 364 K/uL High 155-360 Red Cell Distri Width %CV 15.2 % High 11.7-14.4 Mean Platelet Volume 9.8 fL 8.9-12.4 Urine Screen 07/02/2013 Urine Color YELLOW Yellow Urine Clarity SL CLOUDY Clear Urine Glucose - Dipstick NEGATIVE mg/dL Negative Urine Bilirubin - Dipstick NEGATIVE Negative Urine Ketone NEGATIVE mg/dL Negative Urine Specific [place] >=1.030 1.010-1.030 Urine Blood TRACE Negative Urine PH 5.5 Low 6.5-7.5 Urine Protein - Dipstick NEGATIVE mg/dL Negative Urine Urobilinogen - Dipstick 0.2 E.U./dL 0.2-1.0 Urine Nitrite - Dipstick NEGATIVE Negative Urine Leuk Esterase NEGATIVE Negative Laboratory test finding 07/01/2013 BUN 19 mg/dL 5-23 8 Creatinine 0.8 mg/dL 0.5-1.4 9 CBC W/Automated Diff 06/10/2013 White Blood Count 8.4 K/uL 3.1-10.7 Red Blood Count 4.68 M/uL 3.90-5.40 Hemoglobin 11.5 gm/dL Low 11.6-15.8 Hematocrit 35.7 % Low 36.0-46.1 Mean Cell Volume 76.3 fl Low 80.9-99.0 Mean Corpuscular HGB 24.6 pg Low 25.9-32.7 Mean Corpuscular HGB Conc 32.2 g/dL 30.8-34.3 Platelet Count 451 K/uL High 155-360 Red Cell Distri Width SD 40.8 fl 3-47 Red Cell Distri Width %CV 14.8 % High 11.7-14.4 Mean Platelet Volume 9.4 fL 8.9-12.4 Neut% 52.1 % 40.4-72.8 Lymph % 37.1 % 17.0-46.1 [place] % 8.2 % 4.3-13.2 Eo% 2.1 % 0.0-6.6 Bas% 0.5 % 0.0-1.1 Neut# 4.39 K/uL 1.0-7.0 Lymph # 3.13 K/uL 0.8-3.4 [place] # 0.69 K/uL 0.3-0.9 Eos # 0.18 K/uL 0.0-0.5 Baso # 0.04 K/uL 0.0-0.1 Laboratory test finding 05/01/2013 Hernia Sac Non-Inguinal See Note 10 Site Laboratory test finding 04/30/2013 Albumin 3.2 g/dL Low 3.5-5.0 Prealbumin 19.9 mg/dL 16.6-30.0 Protime 04/29/2013 Protime 11.4 seconds Low 12.0-14.4 Inr 0.8 Low 0.9-1.1 11 Laboratory test finding 04/29/2013 Act Partial Thrombo 31.7 seconds 23.4- 35.0 12 Time Urine Screen 04/25/2013 Urine Color YELLOW Yellow Urine Clarity CLEAR Clear Urine Glucose - Dipstick NEGATIVE mg/dL Negative Urine Bilirubin - Dipstick NEGATIVE Negative Urine Ketone NEGATIVE mg/dL Negative Urine Specific [place] >=1.030 1.010-1.030 Urine Blood NEGATIVE Negative Urine PH 6.0 Low 6.5-7.5 Urine Protein - Dipstick NEGATIVE mg/dL Negative Urine Urobilinogen - Dipstick 0.2 E.U./dL 0.2-1.0 Urine Nitrite - Dipstick NEGATIVE Negative Urine Leuk Esterase NEGATIVE Negative CBC W/Automated Diff 04/25/2013 White Blood Count 10.5 K/uL 3.1-10.7 Red Blood Count 5.36 M/uL 3.90-5.40 Hemoglobin 13.5 gm/dL 11.6-15.8 Hematocrit 40.7 % 36.0-46.1 Mean Cell Volume 75.9 fl Low 80.9-99.0 Mean Corpuscular HGB 25.2 pg Low 25.9-32.7 Mean Corpuscular HGB Conc 33.2 g/dL 30.8-34.3 Platelet Count 385 K/uL High 155-360 Red Cell Distri Width SD 42.8 fl 3-47 Red Cell Distri Width %CV 15.6 % High 11.7-14.4 Mean Platelet Volume 9.7 fL 8.9-12.4 Neut% 59.4 % 40.4-72.8 Lymph % 30.0 % 17.0-46.1 [place] % 9.2 % 4.3-13.2 Eo% 1.0 % 0.0-6.6 Bas% 0.4 % 0.0-1.1 Neut# 6.23 K/uL 1.0-7.0 Lymph # 3.15 K/uL 0.8-3.4 [place] # 0.96 K/uL High 0.3-0.9 Eos # 0.11 K/uL 0.0-0.5 Baso # 0.04 K/uL 0.0-0.1 Laboratory test finding 04/25/2013 Lipase 124 U/L 28-380 Comprehensive Metabolic Panel 04/25/2013 Glucose 98 mg/dL 76-115 BUN 15 mg/dL 5-23 Creatinine 1.0 mg/dL 0.5-1.4 Glom Filtration Rate, Estimate >60 mL/min >60 If >60 mL/min >60 13 BUN/Creat 15.0 ratio Sodium 142 mmol/L 136-145 Potassium 4.1 mmol/L 3.5-5.1 Chloride 104 mmol/L 98-107 Carbon Dioxide 27 mEq/L 18-29 Anion Gap 15 mEq/L 8-16 Calcium 10.2 mg/dL High 8.5-10.1 Total Protein 8.1 g/dL High 6.3-8.0 Albumin 3.9 g/dL 3.5-5.0 Globulin 4.2 g/dL 1.9-4.3 Alb/Glob 0.9 ratio Bilirubin,Total 0.4 mg/dL 0.2-1.2 Sgot/Ast 15 U/L Low 16-40 SGPT/Alt 28 U/L Low 30-65 Alkaline Phosphatase 111 U/L 50-136 CBC W/Automated Diff 04/09/2013 White Blood Count 7.0 K/uL 3.1-10.7 Red Blood Count 5.05 M/uL 3.90-5.40 Hemoglobin 12.7 gm/dL 11.6-15.8 Hematocrit 38.9 % 36.0-46.1 Mean Cell Volume 77.0 fl Low 80.9-99.0 Mean Corpuscular HGB 25.1 pg Low 25.9-32.7 Mean Corpuscular HGB Conc 32.6 g/dL 30.8-34.3 Platelet Count 316 K/uL 155-360 Red Cell Distri Width SD 44.0 fl 3-47 Red Cell Distri Width %CV 15.9 % High 11.7-14.4 Mean Platelet Volume 10.0 fL 8.9-12.4 Neut% 50.9 % 40.4-72.8 Lymph % 33.2 % 17.0-46.1 [place] % 14.3 % High 4.3-13.2 Eo% 1.3 % 0.0-6.6 Bas% 0.3 % 0.0-1.1 Neut# 3.58 K/uL 1.0-7.0 Lymph # 2.34 K/uL 0.8-3.4 [place] # 1.01 K/uL High 0.3-0.9 Eos # 0.09 K/uL 0.0-0.5 Baso # 0.02 K/uL 0.0-0.1 Basic Metabolic Panel 04/09/2013 Glucose 106 mg/dL 76-115 BUN 18 mg/dL 5-23 Creatinine 1.0 mg/dL 0.5-1.4 Glom Filtration Rate, Estimate >60 mL/min >60 If >60 mL/min >60 14 BUN/Creat 18.0 ratio Sodium 145 mmol/L 136-145 Potassium 3.7 mmol/L 3.5-5.1 Chloride 107 mmol/L 98-107 Carbon Dioxide 27 mEq/L 18-29 Anion Gap 15 mEq/L 8-16 Calcium 8.8 mg/dL 8.5-10.1 15 Basic Metabolic Panel 07/06/2012 Glucose 101 mg/dL 76-115 BUN 14 mg/dL 5-23 Creatinine 0.6 mg/dL 0.5-1.4 Glom Filtration Rate, Estimate >60 mL/min >60 If >60 mL/min >60 16 BUN/Creat 23.3 ratio Sodium 143 mmol/L 136-145 Potassium 3.6 mmol/L 3.5-5.1 Chloride 108 mmol/L High 98-107 Carbon Dioxide 26 mEq/L 18-29 Anion Gap 13 mEq/L 8-16 Calcium 8.6 mg/dL 8.5-10.1 LDL Cholesterol Profile 09/23/2009 Cholesterol 187 mg/dL 120-200 Triglycerides 186 mg/dL 0-210 HDL Cholesterol 55 mg/dL 32-96 LDL-Cholesterol 95 mg/dL 62-185 Laboratory test finding 09/23/2009 CK 51 U/L 26-190 Troponin-I 0.0 NG/ML 0.0-0.6 17 Oximetry 09/22/2009 Oximetry 98 % 93-98 Fio2 21 21-100 Heart Rate 72 BPM Patient Status RESTING Patient Position LYING FLAT IN BE <SEE NOTE> 18 Laboratory test finding 09/22/2009 Magnesium 2.1 mg/dL 1.7-2.3 19 CK 59 U/L 26-190 19 Troponin-I 0.0 NG/ML 0.0-0.6 19, 20 Protime 09/22/2009 Protime 12.7 seconds 11.8-14.6 19 Inr 1.0 0.9-1.1 19, 21 Laboratory test 09/22/2009 Act Partial Thrombo Time 27.7 seconds 23.4- 37.4 19 finding Laboratory test 09/22/2009 D-Dimer, Quantitative 0.22 ug/mL 22 finding CBC W/Automated Diff 09/22/2009 White Blood Count 8.8 K/uL 3.1-10.7 Red Blood Count 5.01 M/uL 3.90-5.40 Hemoglobin 12.9 gm/dL 11.6-15.8 Hematocrit 38.6 % 36.0-46.1 Mean Cell Volume 77.0 fl Low 80.9-99.0 Mean Corpuscular HGB 25.7 pg Low 25.9-32.7 Mean Corpuscular HGB Conc 33.4 g/dL 30.8-34.3 Platelet Count 286 K/uL 155-360 Red Cell Distri Width %CV 15.1 % High 11.7-14.4 Mean Platelet Volume 9.7 fL 8.9-12.4 Neut% 55.8 % 40.4-72.8 Lymph % 35.1 % 17.0-46.1 [place] % 8.5 % 4.3-13.2 Eo% 0.3 % 0.0-6.6 Bas% 0.3 % 0.0-1.1 Neut# 4.9 K/uL 1.0-7.0 Lymph # 3.1 K/uL 0.8-3.4 [place] # 0.8 K/uL 0.3-0.9 Eos # 0.0 K/uL 0.0-0.5 Baso # 0.0 K/uL 0.0-0.1 Red Cell Distri Width SD 42 fl 3-47 Laboratory test finding 09/22/2009 CK 65 U/L 26-190 Troponin-I 0.0 NG/ML 0.0-0.6 23 Basic Metabolic Panel 09/22/2009 Glucose 85 mg/dL 76-115 BUN 16 mg/dL 5-23 Creatinine 0.9 mg/dL 0.5-1.4 Glom Filtration Rate, Estimate >60 mL/min >60 If >60 mL/min >60 24 BUN/Creat 17.7 Sodium 139 mEq/L 136-145 Potassium 4.0 mEq/L 3.5-5.1 Chloride 102 mEq/L 98-107 Carbon Dioxide 28 mEq/L 21-32 Anion Gap 13 mEq/L 8-16 Calcium 9.3 mg/dL 8.5-10.1 1 I48.0 PAROXYSMAL ATRIAL FIBRILLATION 2 CULTURE IN PROGRESS 3 GRAM STAIN ! NO ORGANISMS SEEN ! FEW WHITE BLOOD CELLS 4 Organism 1 ! NO PATHOGENS ISOLATED 5 Note: Persistent reduction for 3 months or more in an eGFR <60 mL/min/1.73 m2 defines CKD. Patients with eGFR values >/=60 mL/min/1.73 m2 may also have CKD if evidence of persistent proteinuria is present. The original MDRD equation for estimated GFR is not valid for patients less than 18 years of age. Additional information may be found at [email or web address]. 6 OPERATION/PROCEDURE I+D midlind abdominal incision DIAGNOSIS: "ABDOMEN, PORTION OF SUBCUTANEOUS ABSCESS CAVITY, I\\E&E\\D MIDLINE ABDOMINAL INCISION": SUTURE ABSCESS FORMATION. NO EVIDENCE OF MALIGNANCY FOUND. Judah [id number] GROSS The specimen is received in formalin labeled, "PORTION OF SUBCUTANEOUS ABSCESS CAVITY" are two pieces of fibroadipose tissue with a focal necrotic appearance measuring 11.1 x 5.3 x 5.9 cm. and 8.5 x 6.7 x 5.5 cm. The larger piece has an 11.5 x 1.2 cm. skin with a scarred appearance. The entire surface is inked and the specimen is serially sectioned. On cut surface it appears to be mature adipose tissue with abscess formation and irregular fibrosis surrounding the abscess. Focally there is yellow discoloration suggestive of fat necrosis. There is no evidence of grossly recognizable tumor. Statistical Clerk Advertising sections are submitted in two blocks. Block A=represntative sections of the skin. JW/tiffani MICROSCOPIC Sections show confluent neutrophilic tissue aggregates and fat infiltration in association with necrotic debris. Suture material is noted. PRE OPERATIVE DIAGNOSIS Midline abdominal incision REVIEW CODE CODE: I SEBASTIAN Somers MD 07/07/13 1508 7 Note: Persistent reduction for 3 months or more in an eGFR <60 mL/min/1.73 m2 defines CKD. Patients with eGFR values >/=60 mL/min/1.73 m2 may also have CKD if evidence of persistent proteinuria is present. The original MDRD equation for estimated GFR is not valid for patients less than 18 years of age. Additional information may be found at [email or web address]. 8 Comments to straight slicing machine operator: PLEASE CALL [phone] WITH RESULTS, THANK YOU CALLED ANDREEA MIR AT 1024 07/01/13 by LAB.[email or web address] 9 Comments to straight slicing machine operator: PLEASE CALL [phone] WITH RESULTS, THANK YOU CALLED ANDREEA MIR TO BLAYNE ARose AT 1024 07/01/13 by LAB.INDIGO 10 OPERATION/PROCEDURE Small bowel resection, hernia repair. DIAGNOSIS: PART 1: "SMALL BOWEL, RESECTION": SEGMENTS OF SMALL BOWEL WITH MARKED CONGESTION AND HEMORRHAGE AND ADHESION ON SEROSA. THE MARGINS ARE HISTOLOGICALLY UNREMARKABLE. PART 2: "PORTION OF HERNIA SAC": HERNIAL SAC SHOWING REACTIVE CHANGES AND INFLAMMATION. JUAN J/tiffani GROSS Part 1. The specimen is received in a single container additionally labeled , "SMALL BOWEL". This contains a recognizable small bowel received in two separate pieces without designation. These pieces of small bowel have been previously incised and have been stapled at different ends. The one with the longer segment measures 9.5 cm. in length, and up to 3.4 x 2.8 cm. in cross-sectional dimension. The serosal surface is edematous, purple and has hemorrhagic changes. The bowel was previous opened longitudinally along the serosal surface. There is some fresh hemorrhage, this corresponds to a point which is 6.4 cm. away from the staple line. In this region there is no disruption of the integrity of the wall, and the mucosa appears to be somewhat edematous without a corresponding mass. Sectioning in this region reveals fresh hemorrhage within the serosa. The mucosa aside from having exaggerating folds is unremarkable. No enlarged lymph nodes are seen. Statistical Clerk Advertising sections from this described area are submitted in cassette A and B. The area of stapling and adjacent small bowel are submitted in cassette C. The shorter segment of bowel measures 6.8 x 4.3 x 3.8 cm. It is diffusely hemorrhagic with some mild serosal edema. A line of edith marquez one end of the bowel wall and this is grossly normal by comparison. A portion from this end is submitted in cassette D. A grossly hemorrhagic portion has been previously incised, and has no gross visible mass. The wall appears to be somewhat white and indurated. Statistical Clerk Advertising sections GROSS (Continued) from this region are submitted in cassette E. Tissue remaining. Part 2. The specimen is received in a single container additionally labeled , "PORTION OF HERNIA SAC". This contains a serosal lined, grossly recognizable membranous structure, pliable and purple measuring 15.3 x 6.7 x 0.2 cm. in overall dimensions. Aside from having some intersecting fibrous bands, there are no focal abnormalities. Statistical Clerk Advertising sections are submitted within a single cassette. Ws/clf MICROSCOPIC Part 1: Sections reveal focally denuded small bowel with marked congestion. Part 2: Sections show mesothelial lined tissue with dilated capillaries in a delicate fibrous and mature adipose stroma. There is hyperplasia of the mesothelial lining and lymphohistiocytic inflammation. PRE OPERATIVE DIAGNOSIS Small bowel obstruction, incisional hernia. REVIEW CODE CODE: I SALINAS Flores MD 05/05/13 1254 11 THERAPEUTIC INR RANGE: 2.0 - 3.0 DVT, Pulmonary embolus, prophylaxis against venous thrombosis or systemic embolization in high risk patients. 2.5 - 3.5 Mechanical heart valves 12 Is patient on heparin protocol? N Is patient on anticoagulants? None QUERY: Anticoagulant Therapy? QUERY: Date of Last Dose: QUERY: Time of Last Dose: 13 Note: Persistent reduction for 3 months or more in an eGFR <60 mL/min/1.73 m2 defines CKD. Patients with eGFR values >/=60 mL/min/1.73 m2 may also have CKD if evidence of persistent proteinuria is present. The original MDRD equation for estimated GFR is not valid for patients less than 18 years of age. Additional information may be found at [email or web address]. 14 Note: Persistent reduction for 3 months or more in an eGFR <60 mL/min/1.73 m2 defines CKD. Patients with eGFR values >/=60 mL/min/1.73 m2 may also have CKD if evidence of persistent proteinuria is present. The original MDRD equation for estimated GFR is not valid for patients less than 18 years of age. Additional information may be found at [email or web address]. 15 Result confirmed by repeat analysis. 16 Note: Persistent reduction for 3 months or more in an eGFR <60 mL/min/1.73 m2 defines CKD. Patients with eGFR values >/=60 mL/min/1.73 m2 may also have CKD if evidence of persistent proteinuria is present. The original MDRD equation for estimated GFR is not valid for patients less than 18 years of age. Additional information may be found at [email or web address]. 17 0 - 0.6 NG/ML: NO EVIDENCE OF MYOCARDIAL INJURY 0.7 - 1.5 NG/ML: MILD ELEVATION, SUGGESTING POSSIBLE MYOCARDIAL INJURY > 1.5 NG/ML: CONSISTENT WITH MYOCARDIAL INJURY 18 LYING FLAT IN BED 19 Specimen: [id number] - TESTS: PT, PTT IS PATIENT ON HEPARIN PROTOCOL ? N IS PATIENT ON ANTICOAGULANTS? UNKNOWN TEST: PT QUERY: Anticoagulant Therapy? QUERY: Date of Last Dose: QUERY: Time of Last Dose: TEST: PTT QUERY: Anticoagulant Therapy? QUERY: Date of Last Dose: QUERY: Time of Last Dose: 20 0 - 0.6 NG/ML: NO EVIDENCE OF MYOCARDIAL INJURY 0.7 - 1.5 NG/ML: MILD ELEVATION, SUGGESTING POSSIBLE MYOCARDIAL INJURY > 1.5 NG/ML: CONSISTENT WITH MYOCARDIAL INJURY 21 THERAPEUTIC INR RANGE: 2.0 - 3.0 DVT, Pulmonary embolus, prophylaxis against venous thrombosis or systemic embolization in high risk patients. 2.5 - 3.5 Mechanical heart valves 22 Note: [facility] has established a 97.89% negative predictive value for thrombotic disease when a cutoff value of 0.5 ug/mL is used. Additional performance parameters for local prevalence of 94.4% as follows: PPV: 9.92%, Sensitivity: 76.47%, Specificity: 61.12% 23 0 - 0.6 NG/ML: NO EVIDENCE OF MYOCARDIAL INJURY 0.7 - 1.5 NG/ML: MILD ELEVATION, SUGGESTING POSSIBLE MYOCARDIAL INJURY > 1.5 NG/ML: CONSISTENT WITH MYOCARDIAL INJURY 24 Note: Persistent reduction for 3 months or more in an eGFR <60 mL/min/1.73 m2 defines CKD. Patients with eGFR values >/=60 mL/min/1.73 m2 may also have CKD if evidence of persistent proteinuria is present. The original MDRD equation for estimated GFR is not valid for patients less than 18 years of age. Additional information may be found at [email or web address]. Procedures Date CPT Code Description Status Comment 06/16/2018 20860 EKG Interpretation And Report Only Completed 06/13/2018 62997 Echocardiogram Complete Completed 05/23/2018 77832 Stress Test Interpre And Report Only Completed 05/23/2018 18010 Stress Test Physician Super Only Completed 05/23/2018 34185 Myocardial Imaging Tomographic Multiple Completed Study AT Rest Or Stress 05/16/2018 85495 EKG-Tracing And Report Completed 05/12/2018 25853 Echocardiogram Complete Completed 04/24/2016 86004 Implant Of Mesh Or Prothesis For Completed Incisional Hernia Repair 04/24/2016 93680 Repair inisial incisional or ventral Completed hernia; reducible 04/18/2016 38968 EKG Interpretation And Report Only Completed 07/03/2013 39691 I&D Complex Postoper Infect Completed 07/03/2013 35687 Anesthesia, Integumentary, Chest Completed Anterior, Unspec 07/02/2013 29391 EKG Interpretation And Report Only Completed 06/19/2013 25 Disability Form Completed 05/01/2013 90097 Anesthesia, Upper Abdomen Surgery Not Completed Otherwise Spec 05/01/2013 79179 Colectomy, Partial;W/Anastomaosis Completed 05/01/2013 13055 Repair initial inscisional or ventral Completed hernia; incarcerated/chanelle 05/01/2013 61936 Implant Of Mesh Or Prothesis For Completed Incisional Hernia Repair 06/20/2010 52357 EKG-Tracing And Report Completed 09/26/2009 72004 Stress Test Interpre And Report Only Completed 09/26/2009 29582 Stress Test Physician Super Only Completed 09/15/2009 38952 EKG Interpretation And Report Only Completed 01/21/2009 17808 EKG-Tracing And Report Completed 07/19/2008 94783 Arthroscopy w/meniscectomy including Completed meniscal shaving 07/16/2008 61013 EKG Interpretation And Report Only Completed 06/03/2008 32333 EKG Interpretation And Report Only Completed 12/02/2007 Mammogram Completed 12/02/2007 Colonoscopy Completed [facility], [facility] Encounters Type Date Location Provider CPT E/M Dx Office Visit 07/01/2018 11:00a Cardiology Office Yusuf Monae, 09230 R53.83 MAnushka, [facility] R42 I10 I48.0 Office Visit 05/21/2018 1:45p Surgical Office Virgilio Booth, 23336 K43.2 Clem M54.14 Office Visit 05/16/2018 9:00a Cardiology Office Yusuf Monae, 06156 Z01.810 M.DRose, [facility] I48.0 I10 I35.0 R94.31 Office Visit 05/06/2018 2:45p Surgical Office Virgilio Zaidi 95964 K43.Ruth Booth M.D. Office Visit 09/06/2016 3:15p Surgical Office Virgilio Zaidi 95706 Z09 Clem Booth Office Visit 08/16/2016 1:15p Surgical Office Virgilio Zaidi 43439 T81.4xxD Clem Booth Office Visit 08/02/2016 3:15p Surgical Office Virgilio Zaidi 12338 K43.2 Clem Booth Office Visit 07/26/2016 11:30a Surgical Office Virgilio Zaidi 63778 T81.4xxDrew Booth M.D. Office Visit 06/06/2016 8:30a Surgical Office Virgilio Zaidi 76948 T81.4xxDrew Booth M.D. Office Visit 04/04/2016 1:00p Surgical Office Virgilio Zaidi 75026 K43.2 Clem Booth Office Visit 02/23/2016 2:30p Surgical Office Viriglio Harrison K43.2 Clem Booth Office Visit 02/01/2016 3:30p Surgical Office Virgilio Zaidi 59287 K43.2 Clem Booth Office Visit 09/03/2013 3:00p Surgical Office Virgilio Zaidi 42320 V67.09 Clem Booth 553.21 Office Visit 04/26/2013 4:42p [place] [address] 560.89 Office Visit 04/16/2013 10:30a Surgical Office Virgilio CooleyRose Camishy, 24278 278.01 M.DRose 564.00 553.21 Office Visit 04/08/2013 11:16a Surgical Office Meek Hernandez M.D. 37372 560.9 Office Visit 07/05/2012 4:14p Surgical Office Meek Hernandez M.D. 39194 558.9 Office Visit 03/05/2011 11:15a Surgical Office Meek Hernandez M.D. 02024 553.21 278.01 564.00 Office Visit 06/20/2010 2:00p Cardiology Office Yusuf Monae, 44100 786.59 M.DRose, [facility] 427.31 401.1 V72.81 Office Visit 01/21/2009 9:30a Cardiology Office Yusuf Monae, 49924 401.1 M.DRose, [facility] 427.31 Office Visit 07/01/2008 2:30p Manish Anderson 94148 836.0 Scaglione,D.O. H., DO 715.16 Office Visit 06/25/2008 11:00a Manish Bynum, Manish 29355 715.16 Scaglione,D.O. H., DO 836.0 Plan of Care Future Appointment(s):08/11/2018 10:20 am - Yusuf Monae M.D., FACC at Cardiology Imoqav4807/01/2018 - Yusuf Monae M.D., FACCR53.83 Other fatigueComments:I believe that most of her symptoms are the restuls of hypotension. She will stop lisinopril HCTZ.R42 Dizziness and giddinessComments: See ulcphV32 Essential (primary) hypertensionComments:She will check her bp daily and call me if the SBP is higher than 140I48.0 Paroxysmal atrial fibrillationComments:no evidence of recurrence. Will continue with xarelto and propafenoneAllFollow up:Follow up visit in one month.
[2018-07-14] MEDS ORDERED: NS 0.9% 1000 ML* 1,000 ML IV ONE (16:06)
[2018-07-14 16:44] LABS: Hematocrit 34 % (35-47); Hemoglobin 11.3 g/dl (12.0-16.0); Mean Corpuscular HGB Conc 33 g/dl (31-36); Mean Corpuscular Hemoglobin 24 pg (27-31); Mean Corpuscular Volume 72 fL (80-97); Mean Platelet Volume 7.2 um3 (7.4-10.4); Platelet Count 362 10^3/ul (150-450); Red Blood Count 4.69 10^6/ul (4.00-5.40); Red Cell Distribution Width 17 % (10.5-15); White Blood Count 11.7 10^3/ul (3.5-10.8)
--- NOTE | 2018-07-14 17:10 | ED ---
Abdominal Pain/Female - HPI Summary HPI Summary: This is scribe Shan Ivy documenting for attending Davion Andrade MD. This patient is a 58 year old F BIBA to [facility] with a chief complaint of an aching L sided abdominal pain. The patient rates the pain 7/10 in severity. Symptoms aggravated by pressure. The pain radiates to her epigastrium and L lower groin. Patient reports soft stool with mucous starting in June, pain in colon, stomach pains, shooting pains up through her abdomen, and fatigue. She has a PMHx of a hernia that no one will repair since March because she is obese and already had 4 surgeries. She had 4 CTs in June that said she didnt have a hernia, but she got a sonogram that said she does have a hernia. She also has a PMHx of A fib (taking Xarelto), diverticulitis, controlled diabetes, and HTN. She has a PSHx of hysterectomy, cholecystectomy, and arthroplasty of the knee. I, Dr. Andrade, personally performed the services described in this documentation as scribed in my presence, and it is both accurate and complete. - History of Current Complaint Chief Complaint: EDAbdPain Stated Complaint: ADB PAIN Time Seen by Provider: 07/14/18 15:58 Hx Obtained From: Patient Hx Last Menstrual Period: 2003 Onset/Duration: Sudden Onset, Still Present Timing: Constant Severity Initially: Moderate Severity Currently: Moderate Pain Intensity: 7 Pain Scale Used: 0-10 Numeric Radiates: Yes Radiates to: Other - Epigastrium and L lower groin Character: Other: - Aching Aggravating Factor(s): Other: - Pressure Alleviating Factor(s): Nothing Associated Signs and Symptoms: Positive: Other: - Soft stool with mucous starting in June, pain in colon, stomach pains, shooting pains up through her abdomen, and fatigue. Allergies/Adverse Reactions: Allergies Allergy/AdvReac Type Severity Reaction Status Date / Time sulfamethoxazole Allergy Rash Verified 07/14/18 15:47 [From Bactrim] trimethoprim [From Bactrim] Allergy Rash Verified 07/14/18 15:47 Home Medications: Home Medications Promethazine TAB* [Phenergan Tab*] 25 mg PO Q8H PRN 07/14/18 [History Confirmed 07/14/18] Rivaroxaban TAB(*) [Xarelto 20 mg] 20 mg PO DAILY 07/14/18 [History Confirmed ] PMH/Surg Hx/FS Hx/Imm Hx Cardiovascular History: Reports: Hx Hypertension GI History: Reports: Hx Gastroesophageal Reflux Disease - ON MEDS, Hx Obstructive Bowel Musculoskeletal History: Reports: Hx Arthritis - BILATERAL KNEES, HANDS, WRIST, Sensory History: Reports: Hx Cataracts - RIGHT, Hx Contacts or Glasses Opthamlomology History: Reports: Hx Cataracts - RIGHT, Hx Contacts or Glasses Neurological History: Denies: Hx Headaches, Hx Seizures Psychiatric History: Reports: Hx Anxiety, Hx Depression - Surgical History Surgery Procedure, Year, and Place: Total left knee 11/2014. abdominal hernia repair 2015. BOWEL OBSTRUCTION RESECT 2012. Cataract surgery. DOUBLE HERNIA REPAIR- MAY 2016 Hx Anesthesia Reactions: No Infectious Disease History: No Infectious Disease History: Reports: Hx Shingles Denies: Hx Clostridium Difficile, Hx Hepatitis, Hx Human Immunodeficiency Virus (HIV), Hx of Known/Suspected MRSA, Hx Tuberculosis, Hx Known/Suspected VRE , Hx Known/Suspected VRSA, History Other Infectious Disease, Traveled Outside the [place] in Last 30 Days - Family History Known Family History: Positive: Hypertension - Social History Occupation: Employed Full-time - [employer] Alcohol Use: None Substance Use Type: Reports: None Smoking Status (MU): Never Smoked Tobacco Have You Smoked in the Last Year: No Review of Systems Positive: Fatigue Positive: Abdominal Pain - aching L sided abdominal pain. , Other - Soft stool with mucous starting in June. Pain in colon. Stoach pains. Shooting pains up through her abdomen. All Other Systems Reviewed And Are Negative: Yes Physical Exam - Summary Physical Exam Summary: VITAL SIGNS: Reviewed. GENERAL: Patient is an obese FEMALE who is lying comfortable in the stretcher. Patient is not in any acute respiratory distress. HEAD AND FACE: No signs of trauma. No ecchymosis, hematomas or skull depressions. No sinus tenderness. EYES: PERRLA, EOMI x 2, No injected conjunctiva, no nystagmus. EARS: Hearing grossly intact. Ear canals and tympanic membranes are within normal limits. MOUTH: Oropharynx within normal limits. NECK: Supple, trachea is midline, no adenopathy, no JVD, no carotid bruit, no c- spine tenderness, neck with full ROM. CHEST: Symmetric, no tenderness at palpation LUNGS: Clear to auscultation bilaterally. No wheezing or crackles. CVS: Irregular rate and rhythm, S1 and S2 present, no murmurs or gallops appreciated. ABDOMEN: Soft, diffuse tenderness. Distended. No rebound no guarding, and no masses palpated. Bowel sounds are normal. EXTREMITIES: FROM in all major joints, no edema, no cyanosis or clubbing. NEURO: Alert and oriented x 3. No acute neurological deficits. Speech is normal and follows commands. SKIN: Dry and warm Triage Information Reviewed: Yes Vital Signs On Initial Exam: Initial Vitals Temp Pulse Resp BP Pulse Ox 98.7 F 88 16 155/69 99 07/14/18 15:39 07/14/18 15:39 07/14/18 15:39 07/14/18 15:39 07/14/18 15:39 Vital Signs Reviewed: Yes Diagnostics - Vital Signs Vital Signs Temp Pulse Resp BP Pulse Ox 07/14/18 15:56 89 153/68 98 07/14/18 15:55 89 98 07/14/18 15:39 98.7 F 88 16 155/69 99 - Laboratory Lab Results: Lab Results 07/14/18 07/14/18 07/14/18 Range/Units 16:26 16:26 16:26 WBC 11.7 H (3.5-10.8) 10^3/ul RBC 4.69 (4.00-5.40) 10^6/ul Hgb 11.3 L (12.0-16.0) g/dl Hct 34 L (35-47) % MCV 72 L (80-97) fL MCH 24 L (27-31) pg MCHC 33 (31-36) g/dl RDW 17 H (10.5-15) % Plt Count 362 (150-450) 10^3/ul MPV 7.2 L (7.4-10.4) um3 Neut % (Auto) Pending Lymph % (Auto) Pending Amelia % (Auto) Pending Eos % (Auto) Pending Baso % (Auto) Pending Absolute Neuts (auto) Pending Absolute Lymphs (auto) Pending Absolute Monos (auto) Pending Absolute Eos (auto) Pending Absolute Basos (auto) Pending Absolute Nucleated RBC Pending Nucleated RBC % Pending APTT 36.7 H (26.0-36.3) seconds Sodium Pending Potassium Pending Chloride Pending Carbon Dioxide Pending Anion Gap Pending BUN Pending Creatinine Pending Est GFR ( Amer) Pending Est GFR (Non-Af Amer) Pending BUN/Creatinine Ratio Pending Glucose Pending Calcium Pending Magnesium Pending Total Bilirubin Pending AST Pending ALT Pending Alkaline Phosphatase Pending Troponin I 0.01 (<0.04) ng/mL C-Reactive Protein Pending Total Protein Pending Albumin Pending Globulin Pending Albumin/Globulin Ratio Pending Amylase Pending Lipase Pending Result Diagrams: 07/14/18 16:26 07/14/18 16:26 Lab Statement: Any lab studies that have been ordered have been reviewed, and results considered in the medical decision making process. - Radiology Abdomen X-Ray Radiology Interpretation Completed By: Radiologist - 17:50. NONDIAGNOSTIC BOWEL GAS PATTERN. SUGGEST FOLLOW-UP IN 24 HOURS IF THERE IS PERSISTENT CONCERN. ED Physician has reviewed this report. - EKG No standard instances Cardiac Rate: Tachycardia - 100 BPM EKG Rhythm: Sinus Rhythm EKG Interpretation: 17:04. No ST elevations. No change from 05/11/2015. Abdominal Pain Fem Course/Dx - Course Course Of Treatment: This patient is a 62-year-old female who presents to the emergency room with a chief complaint of having diffuse abdominal pain, positive nausea, vomiting, and diarrhea. Patient reports that she has been in, hospital 4 times and they have done 4 abdominal pelvic CTs without any findings. She reports that the diarrhea is watery with no blood or mucus. She denies any fever or chills. She reports the pain is crampy like pain without radiation. Blood test result shows a what was a count of 11.7, hemoglobin 11.3 hematocrit 34 and platelets 362. Glucose of 110 Ken and 1.8 CRP of 26.4. In the ED course we obtained an IV access, the patient was given IV fluids for rehydration, Zofran for nausea and morphine for the pain. The patients was given magnesium oxide for the hypomagnesemia. She was given vancomycin since the patients stool samples and was positive for C. difficile. The patient lives alone therefore the patient can be discharged home with follow-up with primary care physician. She will be given a prescription for vancomycin 250 mg twice a day. I chose these strength since the patient reports that this is her second time with C diff. I discussed all the findings and test results with the patient. Patient was instructed to return to the emergency room immediately if any of the symptoms return or worsens. Plan of care was discussed with the patient and understands and agrees. All questions were answered at patient satisfaction. There were no further complaints or concerns. Lung exam before discharge: CTA B/L. Good air exchange. No wheezing or crackles heard. CVS: S1 and S2 present. No murmurs appreciated. Patient is alert and oriented x 3. Patient is hemodynamically stable. Patient will be discharged home with follow up PCP in the next 2-3 days - Diagnoses Differential Diagnosis: Positive: Constipation, Irritable Bowel Syndrome Provider Diagnoses: Colitis, Clostridium difficile Discharge - Sign-Out/Discharge Documenting (check all that apply): Patient Departure - D/C - Discharge Plan Condition: Stable Disposition: HOME Prescriptions: Vancomycin CAP* 250 mg PO QID #40 cap Patient Education Materials: C Diff (Clostridium Difficile) Infection (ED) Referrals: Paradise Pearson MD [Primary Care Provider] - 3 Days Additional Instructions: RETURN TO THE ED FOR ANY WORSENING OR NEW SYMPTOMS
[2018-07-14 17:33] LABS: ABS Basophils 0 10^3/ul (0-0.2); ABS Eosinophils 0.1 10^3/ul (0-0.6); ABS Lymphocytes 2.2 10^3/ul (1.0-4.8); ABS Neutrophils 8.4 10^3/ul (1.5-7.7); ABS Nucleated RBC 0 10^3/ul; Eosinophil % 0.7 % (0-6); Lymphocyte % 18.5 % (25-47); Nucleated Red Blood Cells % 0
--- NOTE | 2018-07-14 17:54 | RAD ---
INDICATION: Abdominal pain COMPARISON: None TECHNIQUE: Erect and supine views of the abdomen are submitted. FINDINGS: Bones: There are no acute bony findings. Soft tissues: The soft tissues appear normal. The psoas margins are sharp. Bowel gas pattern: Nonspecific bowel gas pattern. There is air in both large and small bowel. There is no significant bowel distention, however. Calcifications: There are no abnormal calcifications. Other: None IMPRESSION: NONDIAGNOSTIC BOWEL GAS PATTERN. SUGGEST FOLLOW-UP IN 24 HOURS IF THERE IS PERSISTENT CONCERN
[2018-07-14] MEDS ORDERED: Morphine VIAL* 10 MG/ML 1 ML VIAL IV ONE (17:57)
[2018-07-14] MEDS ORDERED: Ondansetron INJ* 2 MG/ML VIAL IV ONE (17:57)
[2018-07-14] MEDS ORDERED: Vancomycin CAP* 125 MG CAP PO ONE (19:44)
[2018-07-14] MEDS ORDERED: Magnesium Oxide TAB* 400 MG PO ONE (20:00)
[2018-07-14] MEDS ORDERED: HYDROcodone/ACETAMIN 5-325 MG* 1 TAB PO ONE (20:04)
[2018-07-14 21:17] VITALS: BP 139/85
--- NOTE | 2018-07-15 07:56 | PN ---
Progress Note - Progress Note Date of Service: 07/14/18 Note: Pt. was diagnosed with c. diff yesterday in the ER. She was treated with vancomycin. No change in treatment needed at this time.
== END 2018-07-14 21:16 | disposition home or self-care (01) ==
LOC: ED 15:22
DX: A04.72 Enterocolitis due to Clostridium difficile, not specified as recurrent (principal); E83.42 Hypomagnesemia; R11.0 Nausea; K21.9 Gastro-esophageal reflux disease without esophagitis; R00.0 Tachycardia, unspecified; E66.9 Obesity, unspecified; I48.91 Unspecified atrial fibrillation; E11.9 Type 2 diabetes mellitus without complications; I10 Essential (primary) hypertension; Z79.01 Long term (current) use of anticoagulants; Z87.19 Personal history of other diseases of the digestive system; Z90.79 Acquired absence of other genital organ(s); Z90.49 Acquired absence of other specified parts of digestive tract; Z88.2 Allergy status to sulfonamides
CPT/HCPCS: 36415; 74019; 80053; 82150; 83630; 83690; 83735; 84484; 85025; 85730; 86140; 87493; 93005; 96361; 96374; 96375; 99284; A9270-GY; J2270; J2405

== ENCOUNTER 2018-11-21 06:55 | Day surgery (SDC) | payer OTHER ==
[~2018-11-21 06:55] MED LIST: Buffered Lidocaine 0.9% SYRIN* 5 ML/SYR SYRINGE INTRADERM ONE; Lactated Ringers 1000 ML Bag* 1,000 ML IV SCH
[2018-11-21] MEDS ORDERED: Propofol* 10 MG/ML 20 ML BTL ONE ×4 (08:18→09:11)
[2018-11-21] MEDS ORDERED: Lidocaine 2% PF * 5 ML VIAL ONE (08:18)
[2018-11-21] MEDS ORDERED: Naloxone* 0.4 MG/ML 1 ML VIAL IV PRN (09:30)
[2018-11-21] MEDS ORDERED: fentaNYL* 50 MCG/ML 2 ML VIAL (100 MCG VIAL) IV PRN (09:30)
[2018-11-21] MEDS ORDERED: Ondansetron INJ* 2 MG/ML VIAL IV PRN (09:30)
[2018-11-21 10:31] VITALS: BP 161/93
--- NOTE | 2018-11-21 10:43 | PRO ---
CC: Dr. Paradise Pearson * DATE OF PROCEDURE: 11/21/2018 - ENDO PROCEDURE PERFORMED: Complete esophagogastroduodenoscopy with biopsies. Colonoscopy to the cecum with biopsy polypectomy. INDICATION FOR PROCEDURE: For upper endoscopy is GERD and abdominal pain, for colonoscopy is average risk screening colonoscopy. MEDICATIONS GIVEN: Please see anesthesia records. DESCRIPTION OF PROCEDURE: After the EGD and colonoscopy procedures, including the risks, benefits, and alternatives, with the risks not limited to perforation , surgery, missed lesions, and/or were explained to the patient, written informed consent was obtained. IV medication was given by the Anesthesia Service and a bite-block was placed between the teeth. The adult Olympus gastroscope was inserted into the oropharynx and into the tubular esophagus. The distal tubular esophagus had very mild irregularity at the GE junction, less than half a centimeter. This was biopsied to rule out microscopic reflux. The GE junction is at 40 cm. The scope was advanced through the lower esophageal sphincter and into the stomach. There was some mild gastritis. A biopsy was taken for CLOtesting. On retroflexion, a small sliding hiatal hernia was visualized 1 cm to 2 cm. The scope was advanced through the widely patent pylorus into the duodenal bulb, C-loop and distal duodenum. These were all normal in appearance. The scope was then removed from the patient. Continued IV sedation medication was given. A rectal exam was then performed. The rectal exam was unremarkable. Next an adult Olympus colonoscope was inserted into the patient's rectum and advanced very carefully through the entirety of the colon and into the cecum. I was able to get a decent look at the overall cecum, but a full comprehensive view of the cecum was limited by hernias and looping; however, there was no large lesion that was visualized. The preparation was fair. Over the next eight minutes, the scope was carefully withdrawn inspecting the mucosa. In the left side of the colon she had moderate diverticulosis coli. Upon further withdraw to the sigmoid, two small polyps were removed with biopsy polypectomy in entirety. On retroflexion, she had grade two internal hemorrhoids. The scope was removed from the patient. She tolerated the procedure well. She returned to the recovery room in stable condition. IMPRESSION: 1. Complete esophagogastroduodenoscopy with biopsies. 2. Gastritis CLOtesting. 3. Minimal irregularity to the GE junction. Biopsy for microscopic reflux. 4. Colonoscopy complete to the cecum. 5. Fair prep. 6. Biopsy polypectomy, two diminutive polyps in the sigmoid colon. 7. Moderate left-sided diverticulosis coli. RECOMMENDATIONS: As we had discussed in the office, I think her episodic abdominal pain is related to some musculoskeletal discomfort associated with her ventral hernias. CAT scan has not revealed any incarceration and upper and lower endoscopy has been grossly unremarkable. At this point, I recommend that she has fiber in her diet to maintain good bowel movements through the hernias and through her colon. In addition, given no large lesions were taken out today , she may resume her Xarelto immediately. Would recommend repeat colonoscopy in five to ten years pending pathology. [id number]/[facility] #: [id number] RAMON
== END 2018-11-21 10:35 | disposition home or self-care (01) ==
LOC: ENDO 06:55
PROVIDERS: ATTEND Internal Medicine Gastroenterology
DX: Z12.11 Encounter for screening for malignant neoplasm of colon (principal); K63.5 Polyp of colon; K57.30 Diverticulosis of large intestine without perforation or abscess without bleeding; K64.1 Second degree hemorrhoids; K21.9 Gastro-esophageal reflux disease without esophagitis; K29.70 Gastritis, unspecified, without bleeding; Z88.2 Allergy status to sulfonamides; Z88.1 Allergy status to other antibiotic agents; Z80.0 Family history of malignant neoplasm of digestive organs; Z79.899 Other long term (current) drug therapy
CPT/HCPCS: 88305; J2704

== ENCOUNTER 2019-01-22 16:25 | Emergency (ER) | payer OTHER ==
[2019-01-22 16:47] VITALS: BP 128/73
--- NOTE | 2019-01-22 17:02 | ED ---
Lower Extremity - HPI Summary HPI Summary: fell on ice and hit left hip, pain has persisted for the last several days, making it hard for her to walk - History of Current Complaint Chief Complaint: UCLowerExtremity Stated Complaint: HIP PAIN S/P FALL 1 WK AGO Time Seen by Provider: 01/22/19 16:51 Hx Obtained From: Patient Hx Last Menstrual Period: 2003 Mechanism Of Injury: Blunt Trauma, Direct Blow Onset of Pain: Immediate Onset/Duration: Days Severity Initially: Moderate Severity Currently: Moderate Pain Intensity: 7 Timing: Constant Location: Is Discrete @ - left hip Character Of Pain: Aching Associated Signs And Symptoms: Positive: Negative Aggravating Factor(s): Standing, Weight Bearing Able to Bear Weight: Yes - Allergies/Home Medications Allergies/Adverse Reactions: Allergies Allergy/AdvReac Type Severity Reaction Status Date / Time sulfamethoxazole Allergy Intermediate Rash Verified 11/21/18 07:38 [From Bactrim] trimethoprim [From Bactrim] Allergy Intermediate Rash Verified 11/21/18 07:38 Home Medications: Home Medications Ibuprofen 800 mg PO DAILY 01/22/19 [History Confirmed 01/22/19] Lisinopril 10 mg PO DAILY 01/22/19 [History Confirmed 01/22/19] PMH/Surg Hx/FS Hx/Imm Hx Previously Healthy: Yes Endocrine/Hematology History: Reports: Hx Diabetes - meds and diet Denies: Hx Anemia Cardiovascular History: Reports: Hx Hypertension, 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, unknown which one, Hx Supraventricular Ventricular Tachycardia, Other Cardiovascular Problems/Disorders - Atrial fib Denies: Hx Pacemaker/ICD Respiratory History: Reports: Other Respiratory Problems/Disorders - SURGERY IN 2012 WHILE SLEEPING OXYGEN LEVEL IN THE 80'S, NEEDED OXYGEN GI History: Reports: Hx Gastroesophageal Reflux Disease - ON MEDS, Hx Obstructive Bowel, Other GI Disorders - Diverticulitis, Ecoli, salmonella colitis Hosp 10 days, C diff colitis 07/19 History: Denies: Other Problems/Disorders Musculoskeletal History: Reports: Hx Arthritis - BILATERAL KNEES and BACK, base of spine from compression fracture, Other Musculoskeletal History - large abdominal hernia left side, size of football per pt Sensory History: Reports: Hx Cataracts - Bilateral, Hx Contacts or Glasses - Glasses Denies: Hx Hearing Aid Opthamlomology History: Reports: Hx Cataracts - Bilateral, Hx Contacts or Glasses - Glasses Neurological History: Denies: Hx Headaches, Hx Seizures, Other Neuro Impairments/Disorders Psychiatric History: Reports: Hx Anxiety - on medication, Hx Depression - on medication - Cancer History Hx Chemotherapy: No - Surgical History Surgery Procedure, Year, and Place: Left Total Knee Replacement 11/2015. Abdominal hernia repair 2005. BOWEL OBSTRUCTION RESECT 2012. Cataract Ext- Bilateral. DOUBLE HERNIA REPAIR- MAY 2016. Hysterectomy 2005. Cholecystectomy 1982 Hx Anesthesia Reactions: No Infectious Disease History: Yes Infectious Disease History: Reports: Hx Clostridium Difficile, Hx Shingles Denies: Hx Hepatitis, Hx Human Immunodeficiency Virus (HIV), Hx of Known/ Suspected MRSA, Hx Tuberculosis, Hx Known/Suspected VRE, Hx Known/Suspected VRSA , History Other Infectious Disease, Traveled Outside the [place] in Last 30 Days - Family History Known Family History: Positive: Hypertension - Social History Alcohol Use: None Substance Use Type: Reports: None Smoking Status (MU): Never Smoked Tobacco Have You Smoked in the Last Year: No Review of Systems Constitutional: Negative Eyes: Negative ENT: Negative Cardiovascular: Negative Respiratory: Negative Gastrointestinal: Negative Genitourinary: Negative Positive: Other - pain left hip Skin: Negative All Other Systems Reviewed And Are Negative: Yes Physical Exam Triage Information Reviewed: Yes Vital Signs On Initial Exam: Initial Vitals Temp Pulse Resp BP Pulse Ox 36.4 C 80 19 128/73 98 01/22/19 16:40 01/22/19 16:40 01/22/19 16:40 01/22/19 16:40 01/22/19 16:40 Vital Signs Reviewed: Yes Appearance: Positive: Well-Nourished, Obese Skin: Positive: Warm Head/Face: Positive: Normal Head/Face Inspection ENT: Positive: Normal ENT inspection Neck: Positive: Supple Respiratory/Lung Sounds: Positive: Clear to Auscultation Cardiovascular: Positive: Normal Musculoskeletal: Positive: Other - left hip pain over the greater trochanter, mild pain on external rotation of the left hip Diagnostics - Vital Signs Vital Signs Temp Pulse Resp BP Pulse Ox 01/22/19 16:40 36.4 C 80 19 128/73 98 - Laboratory Lab Statement: Any lab studies that have been ordered have been reviewed, and results considered in the medical decision making process. Lower Extremity Course/Dx - Diagnoses Provider Diagnoses: Hip sprain Discharge - Sign-Out/Discharge Documenting (check all that apply): Patient Departure All imaging exams completed and their final reports reviewed: Yes - Discharge Plan Condition: Fair Disposition: HOME Patient Education Materials: Hip Sprain (ED) Referrals: Paradise Pearson MD [Primary Care Provider] - Additional Instructions: physicial therapy, ice, elevation, no NSAIDs because of rivaraxoban - Billing Disposition and Condition Condition: FAIR Disposition: Home
== END 2019-01-22 17:43 | disposition home or self-care (01) ==
LOC: UCCORT 16:25
DX: S73.102A Unspecified sprain of left hip, initial encounter (principal); E11.9 Type 2 diabetes mellitus without complications; I10 Essential (primary) hypertension; Z79.899 Other long term (current) drug therapy; Z88.2 Allergy status to sulfonamides; W00.0XXA Fall on same level due to ice and snow, initial encounter; Y92.9 Unspecified place or not applicable
CPT/HCPCS: 99211; G0463

== ENCOUNTER 2019-03-27 13:45 | Emergency (ER) | payer OTHER ==
[2019-03-27 14:15] VITALS: BP 138/67
--- NOTE | 2019-03-27 14:17 | UC ---
Complaint Female HPI - HPI Summary HPI Summary: 63 y/o female with PMHX of DM 2, HTN, Afib 5 days hx of dysuria, urinary frequency , lower abd. pain was seen by her pcp 5 days ago , placed on Macobid, not much improvement, getting worse over the past few days with fever , fatigue , cont. to have dysuri, severe body aches all over no chest pain , no sob - History Of Current Complaint Chief Complaint: UCGeneralIllness Stated Complaint: URINARY,NAUSEA,ELEVATED BS Time Seen by Provider: 03/27/19 13:48 Hx Obtained From: Patient Hx Last Menstrual Period: 2003 Onset/Duration: Gradual Onset, Lasting Days - 5, Still Present, Worse Since - past 2 days Timing: Constant Severity Initially: Moderate Severity Currently: Severe Pain Intensity: 8 Character: Burning, Cramping Aggravating Factor(s): Urination Associated Signs And Symptoms: Positive: Fever, Back Pain, Nausea. Negative: Vaginal Bleeding/Discharge, Vaginal Discharge, Vomiting(# Of Episodes =), Genital Swelling, Genital Blisters, Retained Foregin Body (Specify) - Allergies/Home Medications Allergies/Adverse Reactions: Allergies Allergy/AdvReac Type Severity Reaction Status Date / Time sulfamethoxazole Allergy Intermediate Rash Verified 03/27/19 13:51 [From Bactrim] trimethoprim [From Bactrim] Allergy Intermediate Rash Verified 03/27/19 13:51 Home Medications: Home Medications clonazePAM TAB(*) [Klonopin TAB(*)] 0.5 mg DAILY PRN 03/27/19 [History Confirmed 03/27/19] PMH/Surg Hx/FS Hx/Imm Hx Endocrine History: Diabetes Cardiovascular History: Hypertension, Atrial Fibrillation - Surgical History Surgical History: Yes Surgery Procedure, Year, and Place: Left Total Knee Replacement 11/2015. Abdominal hernia repair 2005. BOWEL OBSTRUCTION RESECT 2012. Cataract Ext- Bilateral. DOUBLE HERNIA REPAIR- MAY 2016. Hysterectomy 2005. Cholecystectomy 1981 - Family History Known Family History: Positive: Hypertension - Social History Alcohol Use: None Substance Use Type: None Smoking Status (MU): Never Smoked Tobacco Have You Smoked in the Last Year: No - Immunization History Most Recent Influenza Vaccination: NO Most Recent Tetanus Shot: 2012 Most Recent Pneumonia Vaccination: NONE Review of Systems All Other Systems Reviewed And Are Negative: Yes Constitutional: Positive: Fever, Chills, Fatigue Skin: Positive: Negative Eyes: Positive: Negative ENT: Positive: Negative Respiratory: Positive: Negative Gastrointestinal: Positive: Negative Genitourinary: Positive: Dysuria, Frequency, Urgency Neurovascular: Positive: Negative Musculoskeletal: Positive: Negative Neurological: Positive: Headache, Weakness Is Patient Immunocompromised?: No Physical Exam Triage Information Reviewed: Yes Appearance: Ill-Appearing, Pain Distress Vital Signs: Initial Vital Signs Temp 99.6 F 03/27/19 13:45 Pulse 89 03/27/19 13:45 Resp 22 03/27/19 13:45 BP 144/67 03/27/19 13:45 Pulse Ox 97 03/27/19 13:45 Vital Signs Reviewed: Yes Eyes: Positive: Conjunctiva Clear ENT: Positive: Normal ENT inspection, Hearing grossly normal, Pharynx normal Neck: Positive: Supple, Nontender, No Lymphadenopathy Respiratory: Positive: Chest non-tender, Lungs clear, Normal breath sounds Cardiovascular: Positive: Tachycardia Abdomen Description: Positive: No Organomegaly, Soft, CVA Tenderness (R), CVA Tenderness (L). Negative: Distended, Guarding Bowel Sounds: Positive: Present Musculoskeletal Exam: Normal Skin Exam: Normal Complaint Female Dx - Differential Dx/Diagnosis Provider Diagnosis: Pyelonephritis Discharge - Sign-Out/Discharge Documenting (check all that apply): Patient Departure All imaging exams completed and their final reports reviewed: No Studies - Discharge Plan Condition: Good Disposition: [facility] Patient Education Materials: Kidney Infection (ED) Referrals: Paradise Pearson MD [Primary Care Provider] - Additional Instructions: concern about kidney infection please go to [facility] ED you will need STAT blood work. - Billing Disposition and Condition Condition: GOOD Disposition: Trans [facility] Care Fac
== END 2019-03-27 14:20 | disposition short-term general hospital (02) ==
LOC: UCCORT 13:45
DX: N12 Tubulo-interstitial nephritis, not specified as acute or chronic (principal); E11.9 Type 2 diabetes mellitus without complications; R11.0 Nausea; I10 Essential (primary) hypertension; Z88.2 Allergy status to sulfonamides; Z88.1 Allergy status to other antibiotic agents
CPT/HCPCS: 99213; G0463

== ENCOUNTER 2019-06-09 20:17 | Emergency (ER) | payer OTHER ==
--- NOTE | 2019-06-09 20:26 | UC ---
Shoulder Pain HPI - HPI Summary HPI Summary: 63 yo female presents with right shoulder pain. She tells me that this evening she went tossing a shirt to her son and felt a sharp pain in her right shoulder while doing so. She mentions that a few years ago she used to do a lot of overhead lifting and thinks she injured her rotator cuff at that time as her range of motion has been decreased since that time with the inability to raise her arm above her head. Tonight she had sharp pain in her right shoulder that radiates into her right neck and down her right arm. She has not taken anything for her discomfort. Denies numbness or tingling. She is right handed. - History of Current Complaint Stated Complaint: RT SHOULDER/ARM PAIN Time Seen by Provider: 06/09/19 20:24 Hx Obtained From: Patient Hx Last Menstrual Period: 2003 Onset/Duration: Sudden Onset Severity Initially: Severe Severity Currently: Severe Pain Intensity: 10 Pain Scale Used: 0-10 Numeric - Allergies/Home Medications Allergies/Adverse Reactions: Allergies Allergy/AdvReac Type Severity Reaction Status Date / Time sulfamethoxazole Allergy Intermediate Rash Verified 06/09/19 20:30 [From Bactrim] trimethoprim [From Bactrim] Allergy Intermediate Rash Verified 06/09/19 20:30 Home Medications: Home Medications glipiZIDE TAB.XL* [Glucotrol XL*] 5 mg PO DAILY 06/09/19 [History Confirmed 08/20] traZODone TAB* [Desyrel TAB*] 100 mg PO BEDTIME 06/09/19 [History Confirmed 08/20] PMH/Surg Hx/FS Hx/Imm Hx Endocrine History: Diabetes Cardiovascular History: Hypertension, Atrial Fibrillation GI/ History: Gastroesophageal Reflux Psychological History: Depression - Surgical History Surgical History: Yes Surgery Procedure, Year, and Place: Left Total Knee Replacement 11/2015. Abdominal hernia repair 2005. BOWEL OBSTRUCTION RESECT 2012. Cataract Ext- Bilateral. DOUBLE HERNIA REPAIR- MAY 2016. Hysterectomy 2005. Cholecystectomy 1981 - Family History Known Family History: Positive: Hypertension - Social History Lives: With Family Alcohol Use: None Substance Use Type: None Smoking Status (MU): Never Smoked Tobacco Have You Smoked in the Last Year: No - Immunization History Most Recent Influenza Vaccination: NO Most Recent Tetanus Shot: 2012 Most Recent Pneumonia Vaccination: NONE Review of Systems All Other Systems Reviewed And Are Negative: Yes Constitutional: Positive: Negative Skin: Positive: Negative Respiratory: Positive: Negative Cardiovascular: Positive: Negative Neurovascular: Positive: Negative Musculoskeletal: Positive: Other: - Right shoulder pain Neurological: Positive: Negative Psychological: Positive: Negative Physical Exam - Summary Physical Exam Summary: GENERAL: NAD. WDWN. No pain distress. SKIN: No rashes, sores, lesions, or open wounds. CHEST: No accessory muscle use. Breathing comfortably and in no distress. CV: Pulses intact radial and ulnar. Cap refill <2seconds MSK: RIGHT SHOULDER: TTP at supraspinatus and right upper trapezius muscles. Pain with active flexion >90deg. Pain with passive flexion at ~145deg. Strength 5/5. No edema or obvious bony deformities. Positive empty can, ruano-roxanna. Negative neer and yergason tests. Right elbow FROM without pain. NEURO: Alert. Sensations intact C4-T1 b/l. PSYCH: Age appropriate behavior. Triage Information Reviewed: Yes Vital Signs: Vital Signs: Temp Pulse Resp BP Pulse Ox 97.7 F 72 20 140/62 99 06/09/19 20:26 06/09/19 20:26 06/09/19 20:26 06/09/19 20:26 06/09/19 20:26 Vital Signs Reviewed: Yes Shoulder Course/Dx - Course Course Of Treatment: XR shoulder: wet read by myself is negative for acute bony abnormality. Suspect rotator cuff injury - possible tear. She was placed in a sling for comfort. Will refer her to Orthopedics and physical therapy for further evaluation and treatment. Advised to rest, apply ice/heat, and may take tylenol for discomfort. - Differential Dx/Diagnosis Provider Diagnosis: Right shoulder pain Discharge - Sign-Out/Discharge Documenting (check all that apply): Patient Departure All imaging exams completed and their final reports reviewed: No - Discharge Plan Condition: Stable Disposition: HOME Patient Education Materials: Shoulder Pain (ED), Early Postoperative or Post Injury Shoulder Exercises (ED) Referrals: Paradise Pearson MD [Primary Care Provider] - 2 Days Jerry Yoder MD [Medical Doctor] - As Soon As Possible Additional Instructions: If you develop a fever, shortness of breath, chest pain, new or worsening symptoms - please call your PCP or go to the ED immediately. Your blood pressure was slightly elevated at todays visit. Please see your primary provider within 4 weeks for recheck and re-evaluation. 1) Rest and apply ice/heat to your shoulder to decrease pain 2) Use the sling for comfort 3) Please call Physical Therapy and Orthopedics to set up an appointment for further evaluation and treatment 4) May take tylenol as directed for discomfort - Billing Disposition and Condition Condition: STABLE Disposition: Home
[2019-06-09 20:30] VITALS: BP 140/62
--- NOTE | 2019-06-10 08:41 | UC ---
- Progress Note Progress Note: right shoulder xray : IMPRESSION: OSTEOARTHRITIS. NO ACUTE OSSEOUS INJURY. IF SYMPTOMS PERSIST, RECOMMEND REPEAT IMAGING. Course/Dx - Diagnoses Provider Diagnoses: Right shoulder pain Discharge - Sign-Out/Discharge Documenting (check all that apply): Patient Departure All imaging exams completed and their final reports reviewed: Yes - Discharge Plan Condition: Stable Disposition: HOME Patient Education Materials: Shoulder Pain (ED), Early Postoperative or Post Injury Shoulder Exercises (ED) Referrals: Jerry Yoder MD [Medical Doctor] - As Soon As Possible Paradise Pearson MD [Primary Care Provider] - 2 Days Additional Instructions: If you develop a fever, shortness of breath, chest pain, new or worsening symptoms - please call your PCP or go to the ED immediately. Your blood pressure was slightly elevated at todays visit. Please see your primary provider within 4 weeks for recheck and re-evaluation. 1) Rest and apply ice/heat to your shoulder to decrease pain 2) Use the sling for comfort 3) Please call Physical Therapy and Orthopedics to set up an appointment for further evaluation and treatment 4) May take tylenol as directed for discomfort - Billing Disposition and Condition Condition: STABLE Disposition: Home
== END 2019-06-09 20:53 | disposition home or self-care (01) ==
LOC: UCCORT 20:17
DX: M25.511 Pain in right shoulder (principal); M19.011 Primary osteoarthritis, right shoulder; E11.9 Type 2 diabetes mellitus without complications; Z79.84 Long term (current) use of oral hypoglycemic drugs; F32.9 Major depressive disorder, single episode, unspecified; Z96.652 Presence of left artificial knee joint; Z88.2 Allergy status to sulfonamides
CPT/HCPCS: 99212; G0463

== ENCOUNTER 2019-11-15 17:05 | Emergency (ER) | payer OTHER ==
--- NOTE | 2019-11-15 17:17 | ED ---
Palpitations / Dysrhythmia - HPI Summary HPI Summary: Patient with history of paroxysmal A. fib complains of 2-3 episodes of "A. fib" today with one lasting about 15 minutes. Patient states they usually last only a couple minutes, this one lasted much longer. Not associated with exertion. Associated symptoms are mild sensation of chest pressure radiating up into her neck and lightheadedness. Symptoms resolved when episode resolved. Denies any active symptoms here in the ED. Patient taking Xarelto and Rythmol. Denies fever, cough, sore throat, SOB, N/V/D, abdominal pain, change in urine, change in BM. Medical history is DM, HTN, A. fib. - History of Current Complaint Hx Obtained From: Patient Onset/Duration: Sudden Onset Severity Initially: Moderate Severity Currently: None Character: Fluttering Aggravating: Nothing Alleviating: Nothing Associated Signs & Symptoms: Lightheadedness - Allergy/Home Medications Allergies/Adverse Reactions: Allergies Allergy/AdvReac Type Severity Reaction Status Date / Time sulfamethoxazole Allergy Intermediate Rash Verified 06/09/19 20:30 [From Bactrim] trimethoprim [From Bactrim] Allergy Intermediate Rash Verified 06/09/19 20:30 Home Medications: Home Medications Hydrochlorothiazide 25 mg PO DAILY 11/15/19 [History Confirmed 11/15/19] PMH/Surg Hx/FS Hx/Imm Hx Endocrine/Hematology History: Reports: Hx Diabetes - type 2 Denies: Hx Anemia Cardiovascular History: Reports: Hx Hypertension, 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, unknown which one, Other Cardiovascular Problems /Disorders - Atrial fib Denies: Hx Pacemaker/ICD Respiratory History: Reports: Other Respiratory Problems/Disorders - SURGERY IN 2012 WHILE SLEEPING OXYGEN LEVEL IN THE 80'S, NEEDED OXYGEN GI History: Reports: Hx Gastroesophageal Reflux Disease - ON MEDS, Hx Obstructive Bowel, Other GI Disorders - Diverticulitis, Ecoli, salmonella colitis Hosp 10 days, C diff colitis 07/19 History: Denies: Other Problems/Disorders Musculoskeletal History: Reports: Hx Arthritis - BILATERAL KNEES and BACK, base of spine from compression fracture, Other Musculoskeletal History - large abdominal hernia left side, size of football per pt Sensory History: Reports: Hx Cataracts - Bilateral, Hx Contacts or Glasses - Glasses Denies: Hx Hearing Aid Opthamlomology History: Reports: Hx Cataracts - Bilateral, Hx Contacts or Glasses - Glasses EENT History: Denies: Hx Deafness Neurological History: Denies: Hx Headaches, Hx Seizures, Other Neuro Impairments/Disorders Psychiatric History: Reports: Hx Anxiety - on medication, Hx Depression - on medication - Cancer History Hx Chemotherapy: No - Surgical History Surgery Procedure, Year, and Place: Left Total Knee Replacement 11/2015. Abdominal hernia repair 2005. BOWEL OBSTRUCTION RESECT 2012. Cataract Ext- Bilateral. DOUBLE HERNIA REPAIR- MAY 2016. Hysterectomy 2005. Cholecystectomy 1982 Hx Anesthesia Reactions: No Infectious Disease History: Reports: Hx Clostridium Difficile, Hx Shingles Denies: Hx Hepatitis, Hx Human Immunodeficiency Virus (HIV), Hx of Known/ Suspected MRSA, Hx Tuberculosis, Hx Known/Suspected VRE, Hx Known/Suspected VRSA , History Other Infectious Disease - Family History Known Family History: Positive: Hypertension - Social History Alcohol Use: None Substance Use Type: Reports: None Smoking Status (MU): Never Smoked Tobacco Have You Smoked in the Last Year: No Review of Systems Constitutional: Negative Eyes: Negative ENT: Negative Positive: Palpitations Respiratory: Negative Gastrointestinal: Negative Genitourinary: Negative Musculoskeletal: Negative Skin: Negative Neurological: Negative Psychological: Normal All Other Systems Reviewed And Are Negative: Yes Physical Exam - Summary Physical Exam Summary: Nonreproducible chest pain. Triage Information Reviewed: Yes Vital Signs Reviewed: Yes Appearance: Positive: Well-Appearing Skin: Positive: Warm Head/Face: Positive: Normal Head/Face Inspection Eyes: Positive: Normal Neck: Positive: Supple Respiratory/Lung Sounds: Positive: Clear to Auscultation Cardiovascular: Positive: Normal, RRR Abdomen Description: Positive: Nontender Musculoskeletal: Positive: Normal Neurological: Positive: Normal Psychiatric: Positive: Normal AVPU Assessment: Alert - [place] Coma Scale Best Eye Response: 4 - Spontaneous Best Motor Response: 6 - Obeys Commands Best Verbal Response: 5 - Oriented Coma Scale Total: 15 Procedures - Sedation Patient Received Moderate/Deep Sedation with Procedure: No Diagnostics - Laboratory Result Diagrams: 11/15/19 17:29 11/15/19 17:29 Lab Statement: Any lab studies that have been ordered have been reviewed, and results considered in the medical decision making process. Course/Dx - Course Course Of Treatment: Patient with history of paroxysmal A. fib complains of 2-3 episodes of "A. fib" today with one lasting about 15 minutes. Patient states they usually last only a couple minutes, this one lasted much longer. Not associated with exertion. Associated symptoms are mild sensation of chest pressure radiating up into her neck and lightheadedness. Symptoms resolved when episode resolved. Denies any active symptoms here in the ED. Patient taking Xarelto and Rythmol. Denies fever, cough, sore throat, SOB, N/V/D, abdominal pain, change in urine, change in BM. Medical history is DM, HTN, A. fib. Vital signs within normal limits. Hemoglobin 10.7 which is patient baseline. Potassium 3.2. Magnesium 1.7. Glucose 2:15. Patient given 40 MEQ of potassium by mouth. Magnesium 2 g IV. EKG sinus rhythm, heart rate 83, same as prior. No irregular rate noticed on 3 repeat exams. 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 Patient is anticoagulated and taking Rythmol. States she is compliant. - Diagnoses Provider Diagnoses: Palpitations Discharge ED - Sign-Out/Discharge Documenting (check all that apply): Patient Departure - Discharge Plan Condition: Stable Disposition: HOME Patient Education Materials: A-fib (Atrial Fibrillation) (ED) Referrals: Paradise Pearson MD [Primary Care Provider] - Additional Instructions: Follow-up with your dam attendant for further evaluation. Return to the ED for any new or worsening symptoms. - Billing Disposition and Condition Condition: STABLE Disposition: Home
[2019-11-15 17:38] LABS: Hematocrit 34 % (35-47); Hemoglobin 10.7 g/dL (12.0-16.0); Mean Corpuscular HGB Conc 32 g/dL (31-36); Mean Corpuscular Hemoglobin 22 pg (27-31); Mean Corpuscular Volume 68 fL (80-97); Mean Platelet Volume 7.5 fL (7.4-10.4); Platelet Count 215 10^3/uL (150-450); Red Blood Count 4.94 10^6 /uL (3.70-4.87); Red Cell Distribution Width 18 % (10-15); White Blood Count 4.8 10^3/uL (3.5-10.8)
[2019-11-15 17:53] LABS: Albumin 3.5 g/dL (3.2-5.2); Albumin/Globulin Ratio 1.1 (1-3); BUN/Creatinine Ratio 16.5 (8-20); C Reactive Protein 18.75 mg/L (<8.01); Calcium 9.3 mg/dL (8.6-10.3); EGFR African American 70.4 (>60); EGFR Non-African American 58.2 (>60); Globulin 3.3 g/dL (2-4); Magnesium 1.7 mg/dL (1.9-2.7); Potassium 3.2 mmol/L (3.5-5.0); Total Bilirubin 0.4 mg/dL (0.2-1.0); Total Protein 6.8 g/dL (6.4-8.9)
[2019-11-15 17:55] LABS: Troponin I 0.01 ng/mL (<0.03)
[2019-11-15 17:56] LABS: ABS Eosinophils 0.1 10^3/ul (0-0.6); ABS Lymphocytes 2.1 10^3/ul (1.0-4.8); ABS Monocytes 0.5 10^3/ul (0-0.8); Eosinophil % 1.8 %; Lymphocyte % 45.2 %
[2019-11-15 17:58] LABS: Urine Appearance Cloudy; Urine Bilirubin Negative (Negative); Urine Blood 1+ (Negative); Urine Color Straw; Urine Glucose Negative (Negative); Urine Ketones Negative (Negative); Urine Nitrite Negative (Negative); Urine Protein Negative (Negative); Urine Specific Gravity 1.006 (1.010-1.030); Urine Urobilinogen Negative (Negative)
[2019-11-15 18:01] LABS: Urine Bacteria Absent (Absent); Urine Red Blood Cell Trace(0-2/hpf) (Absent); Urine Squamous Epithelial Cell Present (Absent); Urine White Blood Cell Trace(0-5/hpf) (Absent)
[2019-11-15 18:03] LABS: Microcytosis 2+
[2019-11-15 18:04] LABS: Polychromasia 1+
[2019-11-15 18:34] LABS: TSH (Thyroid Stimulating Horm) 1.37 mcIU/mL (0.34-5.60)
[2019-11-15] MEDS ORDERED: Potassium Chlor TAB* 20 MEQ TAB.ER PO ONE (18:56)
[2019-11-15] MEDS ORDERED: Magnesium Sulfate 2 GM IV* 2 GM/50 ML BAG IVPB ONE (18:56)
[2019-11-15 21:06] VITALS: BP 137/80
== END 2019-11-15 20:50 | disposition home or self-care (01) ==
LOC: ED 17:05
DX: R00.2 Palpitations (principal); R42 Dizziness and giddiness; E11.9 Type 2 diabetes mellitus without complications; I10 Essential (primary) hypertension; F41.9 Anxiety disorder, unspecified; F32.9 Major depressive disorder, single episode, unspecified; Z79.899 Other long term (current) drug therapy
CPT/HCPCS: 36415; 80053; 81003; 81015; 83735; 84443; 84484; 85025; 85060; 86140; 87086; 93005; 96365; 99283; A9270-GY; J3475

== ENCOUNTER 2024-01-07 12:30 | Observation (INO) ==
[2024-01-07] MEDS ORDERED: Propofol 10 MG/ML 20 ML BTL ONE ×3 (13:43→18:01)
[2024-01-07] MEDS ORDERED: Lidocaine 2% PF 5 ML VIAL ONE (13:44)
[2024-01-07] MEDS ORDERED: Buffered Lidocaine 1% SYRIN 1 ml ONE ×2 (14:12→14:50)
[2024-01-07 14:20] LABS: INR 1.03 (0.83-1.13)
[2024-01-07] MEDS ORDERED: Famotidine IV 10 MG/ML 2 ml VIAL (20 mg) ONE (14:24)
[2024-01-07] MEDS ORDERED: ceFAZolin 2 GM in NS PREMIX 2 GM/100 ML BAG IVPB ONE (14:24)
[2024-01-07 14:52] LABS: Rapid COVID-19 Molecular Undetected (Undetected)
[2024-01-07] MEDS ORDERED: fentaNYL 100 mcg/2 ml 50 MCG/ML VIAL ONE ×3 (15:00→20:27)
[2024-01-07] MEDS ORDERED: ROPIVACAINE 5 MG/ML 30 ML BTL (0.5%) ONE ×2 (15:00→15:33)
[2024-01-07] MEDS ORDERED: Midazolam 5 mg/5 ml VIAL 1 mg/ml 5 ml VIAL (5 mg) ONE (15:00)
[2024-01-07] MEDS ORDERED: ceFAZolin 1 GM in Dextrose 1 GM/50 ML BAG ONE (15:52)
[2024-01-07] MEDS ORDERED: Lactulose 30 ml UDC PO PRN (15:53)
[2024-01-07] MEDS ORDERED: Ondansetron ODT 4 mg TAB 4 MG TAB PO PRN (15:53)
[2024-01-07] MEDS ORDERED: Magnesium Hydroxide LIQ 30 ML UDC PO PRN (15:53)
[2024-01-07] MEDS ORDERED: Ondansetron 4 mg VIAL 2 MG/ML 2 ml VIAL IV PRN (15:53)
[2024-01-07] MEDS ORDERED: Tranexamic Acid 1 GM/100ML BAG 2,000 MG/200 ML BAG IV ONE (15:55)
[2024-01-07] MEDS ORDERED: Bupivacaine 0.5% SDV PF 30ML VIAL ONE (16:24)
[2024-01-07] MEDS ORDERED: Glycopyrrolate IV 0.2 MG/ML 1 ML VIAL ONE ×2 (16:57→17:10)
[2024-01-07] MEDS ORDERED: Phenylephrine 40 mcg/mL 10mL (400mcg) SYRINGE ONE (16:57)
[2024-01-07] MEDS ORDERED: Naloxone 0.4 mg VIAL 0.4 mg/ml 1 ml VIAL IV PRN (17:18)
[2024-01-07] MEDS ORDERED: fentaNYL 250 mcg/5 ml 50 MCG/ML 5 ml VIAL (250 MCG) ONE (17:21)
[2024-01-07] MEDS ORDERED: Rocuronium 50 mg VIAL 10 mg/ml 5 ml VIAL (50 mg) ONE (17:21)
[2024-01-07] MEDS ORDERED: Acetaminophen IV 1 GM/100ML 1,000 MG/100 ML BAG IV ONE (18:00)
[2024-01-07] MEDS ORDERED: Ondansetron 4 mg VIAL 2 MG/ML 2 ml VIAL ONE (18:04)
[2024-01-07] MEDS ORDERED: KETAMINE HCL 10 MG/ML 20 ml VIAL (200 MG) ONE (18:10)
[2024-01-07] MEDS: Buffered Lidocaine 1% SYRIN 1 ml INTRADERM ONE (19:56)
[2024-01-07] MEDS: fentaNYL 100 mcg/2 ml 50 MCG/ML VIAL IV PRN (19:59)
[2024-01-07] MEDS: Lactated Ringers 1000 ml BAG 1,000 ML IV SCH ×2 (19:59→22:38)
[2024-01-07] MEDS: Magnesium Hydroxide LIQ 30 ML UDC PO SCH (22:14)
[2024-01-07] MEDS: Morphine 2 MG/ML SYRINGE IV PRN (22:17)
[2024-01-07] MEDS: Famotidine IV 10 MG/ML 2 ml VIAL (20 mg) IV ONE (22:38)
[2024-01-08] MEDS: PROPAFENONE 325 MG PO SCH ×2 (01:07→21:21)
[2024-01-08] MEDS: ceFAZolin 1 GM ADVAN 1 GM in NS 0.9% 50 ML 50 ML IVPB SCH (01:12)
[2024-01-08 06:22] LABS: Hemoglobin 10.9 g/dL (11.5-14.3); Mean Platelet Volume 7.3 fL (7.5-11.2); Platelet Count 266 10^3/uL (150-450)
[2024-01-08 06:46] LABS: Calcium 8.8 mg/dL (8.6-10.3); Creatinine, Serum 0.77 mg/dL (0.51-0.95); Potassium 3.8 mmol/L (3.5-5.0)
[2024-01-08] MEDS: Potassium Chlor 10 meq TAB PO SCH (08:23)
[2024-01-08] MEDS: Vitamin THERAPEUTIC TAB PO SCH (08:24)
[2024-01-08] MEDS: DULoxetine DR 20 mg CAP PO SCH (08:26)
[2024-01-09 06:00] LABS: Hematocrit 34.9 % (35-45); Hemoglobin 11.5 g/dL (11.5-14.3); Mean Platelet Volume 7.2 fL (7.5-11.2); Platelet Count 258 10^3/uL (150-450)
[2024-01-09] MEDS ORDERED: Sulfur Hexaflouride MICROSPHR 25 MG VIAL ONE (08:42)
[2024-01-09] MEDS: Iodixanol 320 (CONTRAST) 100 ML SDV IV ONE (10:08)
[2024-01-09 13:47] VITALS: BP 158/63
== END 2024-01-09 16:00 | disposition home or self-care (01) ==
LOC: INTOOBSV 13:08 → AA 13:08 → SUATTDRO 13:08 → SSU 22:01
PROVIDERS: ADMIT Orthopaedic Surgery Adult Reconstructive Orthopaedic Surgery; ATTEND Orthopaedic Surgery Adult Reconstructive Orthopaedic Surgery